=== PATIENT | female | born 1970 | race Caucasian/White ===

== ENCOUNTER → 2019-08-01 | Outpatient (CLI) | payer OTHER ==
[~2019-08-01] MED LIST: ALBUTEROL0.09 MG/A2 IH; AUGMENTIN 875875 MG PO; FLEXERIL5 MG PO; FLONASE ALLERG9.9 ML NAS; MEDROL DOSEPAK4 MG PO; NAPROSYN500 MG PO; PREDNISONE10 MG PO; ROBITUSSIN AC 110 ML PO; TESSALON PERLE100 M1 PO; TESSALON PERLE200 MG PO; VIBRAMYCIN100 MG PO; ZITHROMAX Z PA250 MG PO; ZITHROMAX250 MG PO; ZOFRAN4 MG PO
[2019-08-01 09:20] LABS: BASO % 0.4 % (0.0-1.0); EOS # 0.2 10*3/uL (0.0-0.4); LYMPH # 2.7 10*3/uL (1.3-4.4); LYMPH % 28.1 % (27.0-41.0); MEAN CELL VOLUME 84.7 fl (81.0-99.0); MEAN CORPUSCULAR HGB 26.9 pg (27.0-31.0); MEAN CORPUSCULAR HGB CONC 31.7 g/dl (33.0-37.0); MEAN PLATELET VOLUME 10.9 fl (9.6-12.3); MONO # 0.5 10*3/uL (0.1-1.0); MONO % 5.6 % (3.0-9.0); NEUT % 63.5 % (47.0-73.0); PLATELET COUNT AUTOMATED 270 10*3/uL (130-400); RED BLOOD COUNT 4.84 10*6/uL (4.10-5.10); RED CELL DISTRI WIDTH 14.6 % (0-14.5); WHITE BLOOD COUNT 9.5 10*3/uL (4.8-10.8)
[2019-08-01 09:47] LABS: ALBUMIN 3.6 gm/dl (3.1-4.5); ALKALINE PHOSPHATASE 128 U/L (45-117); BUN 10 mg/dl (7-24); CHLORIDE 100 mmol/L (98-107); CHOLESTEROL 244 mg/dL (<200); CREATININE 0.66 mg/dL (0.55-1.02); FREE T4 0.97 ng/dl (0.76-1.46); HDL CHOLESTEROL 38 mg/dl (40-60); POTASSIUM 3.6 mmol/L (3.5-5.1); SGOT/AST 67 IU/L (3-35); SGPT/ALT 69 U/L (12-78); SODIUM 134 mmol/L (136-145); TOTAL PROTEIN 8.5 gm/dL (6.4-8.2); TRIGLYCERIDES 489 mg/dl (<150)
[2019-08-02 10:07] LABS: CREATININE,URINE 232.6 mg/dL (Not Estab.); MICRO ALBUMIN/CRE RATIO 608.6 (0.0-30.0)
== END | disposition home or self-care (01) ==
LOC: LAB 08:41
PROVIDERS: Family Medicine
DX: R63.1 Polydipsia (principal); R07.89 Other chest pain; R23.2 Flushing; R35.8 Other polyuria

== ENCOUNTER → 2019-09-29 | Outpatient (CLI) | payer OTHER | END | disposition home or self-care (01) | LOC: CARD 08:19 | DX: R06.02 Shortness of breath (principal); R10.11 Right upper quadrant pain; I51.7 Cardiomegaly ==

== ENCOUNTER → 2019-10-08 | Outpatient (CLI) | payer OTHER | END | disposition home or self-care (01) | LOC: US 00:30 | DX: K76.0 Fatty (change of) liver, not elsewhere classified (principal); E11.9 Type 2 diabetes mellitus without complications; I10 Essential (primary) hypertension ==

== ENCOUNTER → 2019-10-13 | Outpatient (CLI) | payer OTHER | END | disposition home or self-care (01) | LOC: RAD 15:27 | DX: M19.042 Primary osteoarthritis, left hand (principal); M19.041 Primary osteoarthritis, right hand; M54.5 Low back pain ==

== ENCOUNTER → 2020-01-08 | Outpatient (CLI) | payer OTHER | END | disposition home or self-care (01) | LOC: MAMMO 00:04 | DX: Z12.31 Encounter for screening mammogram for malignant neoplasm of breast (principal) ==

== ENCOUNTER → 2020-06-02 | Outpatient (CLI) | payer OTHER | END | disposition home or self-care (01) | LOC: US 12:15 | DX: N88.8 Other specified noninflammatory disorders of cervix uteri (principal); D25.9 Leiomyoma of uterus, unspecified ==

== ENCOUNTER 2020-07-10 10:44 | Emergency (ER) | payer OTHER ==
[2020-07-10 11:01] VITALS: BP 144/63
[2020-07-10 12:06] LABS: BASO % 0.3 % (0.0-1.0); EOS # 0.2 10*3/uL (0.0-0.4); HEMATOCRIT 37.3 % (37.0-47.0); LYMPH # 2.3 10*3/uL (1.3-4.4); LYMPH % 23.5 % (27.0-41.0); MEAN CELL VOLUME 83.3 fl (81.0-99.0); MEAN CORPUSCULAR HGB 24.6 pg (27.0-31.0); MEAN CORPUSCULAR HGB CONC 29.5 g/dl (33.0-37.0); MEAN PLATELET VOLUME 10.2 fl (9.6-12.3); MONO # 0.5 10*3/uL (0.1-1.0); MONO % 5.2 % (3.0-9.0); NEUT # 6.6 10*3/uL (2.3-7.9); NEUT % 68.7 % (47.0-73.0); PLATELET COUNT AUTOMATED 308 10*3/uL (130-400); RED BLOOD COUNT 4.48 10*6/uL (4.10-5.10); RED CELL DISTRI WIDTH 15.9 % (0-14.5); WHITE BLOOD COUNT 9.6 10*3/uL (4.8-10.8)
[2020-07-10 12:22] LABS: ALBUMIN 3.5 gm/dl (3.1-4.5); ALKALINE PHOSPHATASE 125 U/L (45-117); BUN 8 mg/dl (7-24); CHLORIDE 102 mmol/L (98-107); CREATININE 0.63 mg/dL (0.55-1.02); POTASSIUM 3.8 mmol/L (3.5-5.1); SGOT/AST 27 IU/L (3-35); SGPT/ALT 34 U/L (12-78); SODIUM 137 mmol/L (136-145); TOTAL PROTEIN 8.2 gm/dL (6.4-8.2)
[2020-07-10] MEDS ORDERED: PREDNISONE20 M1 PO (13:33)
== END 2020-07-10 13:58 | disposition home or self-care (01) ==
LOC: ED 10:44
PROVIDERS: Physician Assistant
DX: M31.6 Other giant cell arteritis (principal); Z91.018 Allergy to other foods; Z79.899 Other long term (current) drug therapy

== ENCOUNTER → 2020-12-06 | Outpatient (CLI) | payer OTHER ==
[~2020-12-06] MED LIST changes: +PREDNISONE20 M1 PO
== END | disposition home or self-care (01) ==
LOC: COVID19 14:25
PROVIDERS: ATTEND Family Medicine
DX: Z20.822 Contact with and (suspected) exposure to COVID-19 (principal)

== ENCOUNTER → 2020-12-14 | Outpatient (CLI) | payer OTHER | END | disposition home or self-care (01) | LOC: RAD 10:10 | PROVIDERS: ATTEND Family Medicine | DX: R05 Cough (principal) ==

== ENCOUNTER → 2021-05-11 | Outpatient (CLI) | payer OTHER | END | disposition home or self-care (01) | LOC: RAD 16:34 | PROVIDERS: ATTEND Nurse Practitioner Primary Care | DX: M54.5 Low back pain (principal); G89.29 Other chronic pain ==

== ENCOUNTER 2021-09-13 17:45 | Emergency (ER) | payer OTHER ==
[~2021-09-13] VITALS: Ht 167.6 cm; Wt 90.7 kg
[2021-09-13 18:16] VITALS: BP 147/50
[2021-09-13 18:47] LABS: BASO # 0.1 10*3/uL (0.0-0.1); BASO % 0.5 % (0.0-1.0); EOS # 0.2 10*3/uL (0.0-0.4); EOS % 1.6 % (1.0-4.0); HEMATOCRIT 34.8 % (37.0-47.0); LYMPH # 2.2 10*3/uL (1.3-4.4); LYMPH % 21.3 % (27.0-41.0); MEAN CELL VOLUME 85.9 fl (81.0-99.0); MEAN CORPUSCULAR HGB 26.2 pg (27.0-31.0); MEAN CORPUSCULAR HGB CONC 30.5 g/dl (33.0-37.0); MEAN PLATELET VOLUME 10.2 fl (9.6-12.3); MONO # 0.5 10*3/uL (0.1-1.0); MONO % 5.3 % (3.0-9.0); NEUT # 7.3 10*3/uL (2.3-7.9); PLATELET COUNT AUTOMATED 276 10*3/uL (130-400); RED BLOOD COUNT 4.05 10*6/uL (4.10-5.10); RED CELL DISTRI WIDTH 15.6 % (0-14.5); WHITE BLOOD COUNT 10.3 10*3/uL (4.8-10.8)
[2021-09-13 19:02] LABS: ACT PARTIAL THROMBO TIME 24.7 SECONDS (20.0-32.1)
[2021-09-13 19:07] LABS: ALBUMIN 3.2 gm/dl (3.1-4.5); ALKALINE PHOSPHATASE 110 U/L (45-117); BUN 13 mg/dl (7-24); CHLORIDE 102 mmol/L (98-107); POTASSIUM 3.7 mmol/L (3.5-5.1); SGOT/AST 23 IU/L (3-35); SGPT/ALT 37 U/L (12-78); SODIUM 137 mmol/L (136-145); TOTAL PROTEIN 7.6 gm/dL (6.4-8.2)
[2021-09-13 19:09] LABS: TROPONIN I < 0.015 ng/ml (<0.045)
== END 2021-09-13 22:13 | disposition home or self-care (01) ==
LOC: ED 17:45
PROVIDERS: Emergency Medicine
DX: R06.00 Dyspnea, unspecified (principal); R53.83 Other fatigue

== ENCOUNTER 2022-11-08 16:33 | Emergency (ER) | payer OTHER | END 2022-11-08 17:59 | disposition left against medical advice (07) | LOC: ED 16:33 | DX: Z53.21 Procedure and treatment not carried out due to patient leaving prior to being seen by health care provider (principal) ==

== ENCOUNTER → 2024-01-08 | Outpatient (CLI) | payer OTHER ==
[2024-01-08 18:31] LABS: ALKALINE PHOSPHATASE 144 U/L (46-116); BUN 10 mg/dl (9-23); CHLORIDE 103 mmol/L (98-107); SGPT/ALT 12 U/L (5-49); TOTAL PROTEIN 6.3 gm/dL (6.0-8.0)
== END | disposition home or self-care (01) ==
LOC: RAD 14:33
PROVIDERS: Nurse Practitioner Family; ATTEND Nurse Practitioner Family
DX: R05.1 Acute cough (principal); R06.2 Wheezing; R60.9 Edema, unspecified; M54.50 Low back pain, unspecified; R06.09 Other forms of dyspnea; R09.89 Other specified symptoms and signs involving the circulatory and respiratory systems; Z86.79 Personal history of other diseases of the circulatory system; Z86.39 Personal history of other endocrine, nutritional and metabolic disease; Z87.09 Personal history of other diseases of the respiratory system

== ENCOUNTER 2024-02-08 17:28 | Emergency (ER) | payer OTHER ==
[~2024-02-08] VITALS: Ht 167.6 cm; Wt 123.4 kg
[2024-02-08 17:53] VITALS: BP 147/79
[2024-02-08 18:33] LABS: BASO % 0.5 % (0.0-1.0); EOS # 0.2 10*3/uL (0.0-0.4); EOS % 2.5 % (1.0-4.0); HEMATOCRIT 32.1 % (37.0-47.0); LYMPH # 1.9 10*3/uL (1.3-4.4); LYMPH % 23.1 % (27.0-41.0); MEAN CELL VOLUME 92.8 fl (81.0-99.0); MEAN CORPUSCULAR HGB 27.5 pg (27.0-31.0); MEAN CORPUSCULAR HGB CONC 29.6 g/dl (33.0-37.0); MEAN PLATELET VOLUME 9.9 fl (9.6-12.3); MONO # 0.5 10*3/uL (0.1-1.0); MONO % 6.4 % (3.0-9.0); NEUT # 5.6 10*3/uL (2.3-7.9); NEUT % 67.3 % (47.0-73.0); PLATELET COUNT AUTOMATED 267 10*3/uL (130-400); RED BLOOD COUNT 3.46 10*6/uL (4.10-5.10); RED CELL DISTRI WIDTH 15.9 % (0-14.5); WHITE BLOOD COUNT 8.4 10*3/uL (4.8-10.8)
[2024-02-08 18:45] LABS: ACT PARTIAL THROMBO TIME 30.5 SECONDS (20.0-32.1)
[2024-02-08 18:58] LABS: ALKALINE PHOSPHATASE 135 U/L (46-116); BUN 12 mg/dl (9-23); CHLORIDE 104 mmol/L (98-107); LIPASE 46 U/L (12-53); POTASSIUM 4.4 mmol/L (3.4-5.1); SGPT/ALT 9 U/L (5-49); TOTAL PROTEIN 5.7 gm/dL (6.0-8.0)
[2024-02-08] MEDS ORDERED: BUMETANIDE 1 MG/4 ML VIAL IV ONE (19:15)
== END 2024-02-08 20:12 | disposition home or self-care (01) ==
LOC: ED 17:28
PROVIDERS: Emergency Medicine
DX: I50.9 Heart failure, unspecified (principal); R79.82 Elevated C-reactive protein (CRP); D64.9 Anemia, unspecified; E43 Unspecified severe protein-calorie malnutrition; Z68.1 Body mass index [BMI] 19.9 or less, adult; J44.9 Chronic obstructive pulmonary disease, unspecified; Z91.013 Allergy to seafood; Z90.49 Acquired absence of other specified parts of digestive tract; Z98.890 Other specified postprocedural states

== ENCOUNTER → 2024-02-18 | Outpatient (CLI) | payer OTHER | END | disposition home or self-care (01) | LOC: CARD 01:19 | PROVIDERS: ATTEND Nurse Practitioner Primary Care | DX: I08.0 Rheumatic disorders of both mitral and aortic valves (principal); R01.1 Cardiac murmur, unspecified; R60.9 Edema, unspecified ==

== ENCOUNTER 2024-02-25 17:18 | Inpatient (IN) | payer OTHER ==
[~2024-02-25] VITALS: Ht 167.6 cm; Wt 128.2 kg
[2024-02-25 17:26] VITALS: BP 172/83
[2024-02-25 17:59] LABS: BASO % 0.3 % (0.0-1.0); EOS # 0.2 10*3/uL (0.0-0.4); EOS % 2.6 % (1.0-4.0); HEMATOCRIT 27.1 % (37.0-47.0); LYMPH # 1.6 10*3/uL (1.3-4.4); LYMPH % 20.2 % (27.0-41.0); MEAN CELL VOLUME 91.6 fl (81.0-99.0); MEAN CORPUSCULAR HGB 28.4 pg (27.0-31.0); MEAN PLATELET VOLUME 9.5 fl (9.6-12.3); MONO # 0.7 10*3/uL (0.1-1.0); MONO % 8.4 % (3.0-9.0); NEUT # 5.4 10*3/uL (2.3-7.9); NEUT % 68.2 % (47.0-73.0); PLATELET COUNT AUTOMATED 260 10*3/uL (130-400); RED BLOOD COUNT 2.96 10*6/uL (4.10-5.10); RED CELL DISTRI WIDTH 15.9 % (0-14.5); WHITE BLOOD COUNT 7.8 10*3/uL (4.8-10.8)
[2024-02-25] MEDS ORDERED: BUMETANIDE 1 MG/4 ML VIAL IV ONE ×2 (18:15→19:45)
[2024-02-25 18:18] LABS: POTASSIUM 3.5 mmol/L (3.4-5.1)
[2024-02-25] MEDS ORDERED: VICTOZA 3-0.6 MG/0.1 SQ (18:26)
[2024-02-25] MEDS ORDERED: CETIRIZINE HYDR10 MG PO (18:28)
[2024-02-25] MEDS ORDERED: BUMETANIDE2 MG PO (18:29)
[2024-02-25] MEDS ORDERED: FERROUS GLUCON324 M2 PO (18:31)
[2024-02-25] MEDS ORDERED: GLIPIZIDE5 M1 PO (18:31)
[2024-02-25] MEDS ORDERED: MULTIVITAMIN (18:32)
[2024-02-25] MEDS ORDERED: MULTIVITAMIN1 EACH PO (18:32)
[2024-02-25] MEDS ORDERED: LISINOPRIL2.5 MG PO (18:32)
[2024-02-25] MEDS ORDERED: PAROXETINE HCL30 MG PO (18:33)
[2024-02-25] MEDS ORDERED: ATORVASTATIN CA80 M1 PO (18:34)
[2024-02-25] MEDS ORDERED: Acetaminophen/Hydrocodone 5 MG/325 MG TABLET PO PRN (19:45)
[2024-02-25] MEDS ORDERED: ACETAMINOPHEN 325 MG TAB PO PRN (19:45)
[2024-02-25] MEDS ORDERED: BISACODYL 5 MG TAB PO PRN (19:45)
[2024-02-25 20:01] VITALS: BP 165/72
[2024-02-25 20:45] VITALS: BP 156/73
[2024-02-25 20:47] LABS: ALKALINE PHOSPHATASE 149 U/L (46-116); BUN 25 mg/dl (9-23); CHLORIDE 109 mmol/L (98-107); POTASSIUM 3.7 mmol/L (3.4-5.1); SGPT/ALT < 7 U/L (5-49); TOTAL PROTEIN 5.8 gm/dL (6.0-8.0)
[2024-02-25 23:51] LABS: BILIRUBIN Negative (Negative); BLOOD Trace-Lysed (Negative); CLARITY Clear (Clear); COLOR Yellow (Yellow); GLUCOSE 2+ (Negative); KETONE Negative (Negative); LEUKO ESTERASE Negative (Negative); NITRITE Negative (Negative); SPECIFIC GRAVITY 1.015 (1.001-1.030); UROBILINOGEN 0.2 E.U./dl (0.0-1.0)
[2024-02-26] VITALS: BP 132/85; BP 141/88
[2024-02-26 00:03] LABS: URINE CREATININE RANDOM 43.06 mg/dL
[2024-02-26 00:05] LABS: BACTERIA 1+; WBC 16-20 wbc/hpf (0-5)
[2024-02-26 06:05] LABS: BASO % 0.4 % (0.0-1.0); EOS # 0.3 10*3/uL (0.0-0.4); EOS % 2.8 % (1.0-4.0); HEMATOCRIT 28.3 % (37.0-47.0); LYMPH # 1.8 10*3/uL (1.3-4.4); LYMPH % 19.9 % (27.0-41.0); MEAN CELL VOLUME 91.6 fl (81.0-99.0); MEAN CORPUSCULAR HGB 27.8 pg (27.0-31.0); MEAN CORPUSCULAR HGB CONC 30.4 g/dl (33.0-37.0); MEAN PLATELET VOLUME 9.9 fl (9.6-12.3); MONO # 0.7 10*3/uL (0.1-1.0); MONO % 8.3 % (3.0-9.0); NEUT # 6.1 10*3/uL (2.3-7.9); NEUT % 68.4 % (47.0-73.0); PLATELET COUNT AUTOMATED 309 10*3/uL (130-400); RED BLOOD COUNT 3.09 10*6/uL (4.10-5.10)
[2024-02-26] MEDS ORDERED: DEXTROSE 10 % IN WATER 250 ML IV PRN (06:30)
[2024-02-26 06:34] LABS: ALKALINE PHOSPHATASE 147 U/L (46-116); BUN 23 mg/dl (9-23); CHLORIDE 111 mmol/L (98-107); CHOLESTEROL 229 mg/dL (<200); FREE T4 0.59 ng/dl (0.89-1.76); LDL CHOLESTEROL 104 mg/dL (9-159); POTASSIUM 3.7 mmol/L (3.4-5.1); TRIGLYCERIDES 313 mg/dl (<150)
[2024-02-26 06:35] LABS: ACT PARTIAL THROMBO TIME 31.5 SECONDS (20.0-32.1); SGPT/ALT < 7 U/L (5-49)
[2024-02-26] MEDS ORDERED: INSULIN LISPRO 1 UNIT/0.01 ML SQ SCH (07:30)
[2024-02-26 07:35] LABS: VITAMIN D, 25-HYDROXY 9.6 ng/mL (30-100)
[2024-02-26 08:00] VITALS: BP 154/64
[2024-02-26] MEDS ORDERED: Enoxaparin Sodium 30 MG/0.3 ML SYR SC SCH (10:00)
[2024-02-26] MEDS ORDERED: Paroxetine Hydrochloride 10 MG TAB PO SCH (10:00)
[2024-02-26] MEDS ORDERED: Cholecalciferol 2,000 UNIT TABLET (50 MCG) PO SCH (10:25)
[2024-02-26 12:00] VITALS: BP 162/60
[2024-02-26] MEDS ORDERED: LISINOPRIL 10 MG TAB PO SCH (13:50)
[2024-02-26] MEDS ORDERED: BUMETANIDE 1 MG/4 ML VIAL IV ONE (13:50)
[2024-02-26 16:00] VITALS: BP 149/69
[2024-02-26 19:00] VITALS: BP 157/69
[2024-02-26] MEDS ORDERED: INFUSION IV SCH (21:00)
[2024-02-26] MEDS ORDERED: BUMETANIDE IV SCH (21:00)
[2024-02-26] MEDS ORDERED: ATORVASTATIN CALCIUM 80 MG TAB PO SCH (22:00)
[2024-02-27] VITALS (10 sets, daily range): BP systolic 136–156; BP diastolic 58–88
[2024-02-27 04:12] LABS: BASO % 0.5 % (0.0-1.0); EOS # 0.2 10*3/uL (0.0-0.4); EOS % 2.8 % (1.0-4.0); LYMPH # 1.9 10*3/uL (1.3-4.4); LYMPH % 22.9 % (27.0-41.0); MEAN CELL VOLUME 92.4 fl (81.0-99.0); MEAN CORPUSCULAR HGB 27.7 pg (27.0-31.0); MEAN PLATELET VOLUME 9.5 fl (9.6-12.3); MONO # 0.7 10*3/uL (0.1-1.0); MONO % 8.7 % (3.0-9.0); NEUT # 5.3 10*3/uL (2.3-7.9); NEUT % 64.9 % (47.0-73.0); PLATELET COUNT AUTOMATED 285 10*3/uL (130-400); RED BLOOD COUNT 3.03 10*6/uL (4.10-5.10); RED CELL DISTRI WIDTH 16.1 % (0-14.5); WHITE BLOOD COUNT 8.1 10*3/uL (4.8-10.8)
[2024-02-27 04:34] LABS: ALKALINE PHOSPHATASE 142 U/L (46-116); BUN 23 mg/dl (9-23); CHLORIDE 111 mmol/L (98-107); POTASSIUM 3.7 mmol/L (3.4-5.1)
[2024-02-27 04:35] LABS: SGPT/ALT < 7 U/L (5-49)
[2024-02-27 04:42] LABS: ACT PARTIAL THROMBO TIME 33.6 SECONDS (20.0-32.1)
[2024-02-27] MEDS ORDERED: Lidocaine Hydrochloride 5 ML AMP ONE (08:12)
[2024-02-27 09:56] LABS: BASO % 0.3 % (0.0-1.0); EOS # 0.2 10*3/uL (0.0-0.4); EOS % 2.9 % (1.0-4.0); HEMATOCRIT 30.8 % (37.0-47.0); LYMPH # 1.4 10*3/uL (1.3-4.4); LYMPH % 19.1 % (27.0-41.0); MEAN CELL VOLUME 92.5 fl (81.0-99.0); MEAN CORPUSCULAR HGB 27.3 pg (27.0-31.0); MEAN CORPUSCULAR HGB CONC 29.5 g/dl (33.0-37.0); MEAN PLATELET VOLUME 9.8 fl (9.6-12.3); MONO # 0.6 10*3/uL (0.1-1.0); MONO % 7.7 % (3.0-9.0); NEUT % 69.6 % (47.0-73.0); PLATELET COUNT AUTOMATED 307 10*3/uL (130-400); RED BLOOD COUNT 3.33 10*6/uL (4.10-5.10); RED CELL DISTRI WIDTH 15.9 % (0-14.5); WHITE BLOOD COUNT 7.2 10*3/uL (4.8-10.8)
[2024-02-27 12:19] LABS: BASO % 0.4 % (0.0-1.0); EOS # 0.2 10*3/uL (0.0-0.4); EOS % 2.4 % (1.0-4.0); LYMPH # 1.4 10*3/uL (1.3-4.4); LYMPH % 18.8 % (27.0-41.0); MEAN CELL VOLUME 93.2 fl (81.0-99.0); MEAN CORPUSCULAR HGB 27.7 pg (27.0-31.0); MEAN CORPUSCULAR HGB CONC 29.7 g/dl (33.0-37.0); MEAN PLATELET VOLUME 9.7 fl (9.6-12.3); MONO # 0.4 10*3/uL (0.1-1.0); MONO % 5.6 % (3.0-9.0); NEUT # 5.4 10*3/uL (2.3-7.9); NEUT % 72.5 % (47.0-73.0); PLATELET COUNT AUTOMATED 293 10*3/uL (130-400); RED BLOOD COUNT 3.11 10*6/uL (4.10-5.10); RED CELL DISTRI WIDTH 15.9 % (0-14.5); WHITE BLOOD COUNT 7.5 10*3/uL (4.8-10.8)
[2024-02-28] VITALS: BP 154/70
[2024-02-28 05:06] LABS: HBSAG Negative (Negative); HEP B CORE AB, IGM Negative (Negative); HEPATITIS C ANTIBODY Non Reactive (Non Reactive)
[2024-02-28 06:38] LABS: BASO % 0.4 % (0.0-1.0); EOS # 0.2 10*3/uL (0.0-0.4); EOS % 2.8 % (1.0-4.0); HEMATOCRIT 28.4 % (37.0-47.0); LYMPH # 1.7 10*3/uL (1.3-4.4); LYMPH % 21.3 % (27.0-41.0); MEAN CELL VOLUME 93.4 fl (81.0-99.0); MEAN CORPUSCULAR HGB 26.6 pg (27.0-31.0); MEAN CORPUSCULAR HGB CONC 28.5 g/dl (33.0-37.0); MEAN PLATELET VOLUME 10.3 fl (9.6-12.3); MONO # 0.7 10*3/uL (0.1-1.0); MONO % 8.6 % (3.0-9.0); NEUT # 5.2 10*3/uL (2.3-7.9); NEUT % 66.6 % (47.0-73.0); PLATELET COUNT AUTOMATED 295 10*3/uL (130-400); RED BLOOD COUNT 3.04 10*6/uL (4.10-5.10); RED CELL DISTRI WIDTH 16.1 % (0-14.5); WHITE BLOOD COUNT 7.8 10*3/uL (4.8-10.8)
[2024-02-28 06:43] LABS: POTASSIUM 3.9 mmol/L (3.4-5.1)
[2024-02-28 08:00] VITALS: BP 159/76
[2024-02-28] MEDS ORDERED: Cetirizine Hydrochloride 10 MG TAB PO SCH (10:45)
[2024-02-28 12:00] VITALS: BP 103/85; BP 153/63
[2024-02-28 14:08] LABS: FREE KAPPA LIGHT CHAINS 91.4 mg/L (3.3-19.4); FREE LAMBDA LIGHT CHAINS 42.4 mg/L (5.7-26.3); KAPPA/LAMBDA RATIO 2.16 (0.26-1.65)
[2024-02-28 15:07] LABS: ALPHA-1-GLOBULIN, URINE 11.4 % (.); ALPHA-2-GLOBULIN, URINE 12.6 % (.); GAMMA GLOBULIN, URINE 9.7 % (.); M-SPIKE % Not Observed % (Not Observed); PROTEIN,TOTAL - URINE RANDOM 1439.2 mg/dL (Not Estab.)
[2024-02-28 16:00] VITALS: BP 135/48
[2024-02-28 20:00] VITALS: BP 148/58
[2024-02-29] VITALS: BP 157/81
[2024-02-29 05:43] LABS: POTASSIUM 3.8 mmol/L (3.4-5.1)
[2024-02-29 06:03] LABS: BASO % 0.4 % (0.0-1.0); EOS # 0.2 10*3/uL (0.0-0.4); HEMATOCRIT 27.8 % (37.0-47.0); LYMPH # 1.6 10*3/uL (1.3-4.4); LYMPH % 20.2 % (27.0-41.0); MEAN CELL VOLUME 92.1 fl (81.0-99.0); MEAN CORPUSCULAR HGB 27.8 pg (27.0-31.0); MEAN CORPUSCULAR HGB CONC 30.2 g/dl (33.0-37.0); MEAN PLATELET VOLUME 10.3 fl (9.6-12.3); MONO # 0.7 10*3/uL (0.1-1.0); MONO % 8.9 % (3.0-9.0); NEUT # 5.2 10*3/uL (2.3-7.9); NEUT % 67.2 % (47.0-73.0); PLATELET COUNT AUTOMATED 301 10*3/uL (130-400); RED BLOOD COUNT 3.02 10*6/uL (4.10-5.10); WHITE BLOOD COUNT 7.8 10*3/uL (4.8-10.8)
[2024-02-29 08:00] VITALS: BP 157/64
[2024-02-29 12:00] VITALS: BP 167/80
[2024-02-29 16:00] VITALS: BP 157/73
[2024-02-29 20:00] VITALS: BP 151/64
[2024-03-01] VITALS: BP 123/45
[2024-03-01 07:11] LABS: BASO % 0.4 % (0.0-1.0); EOS # 0.2 10*3/uL (0.0-0.4); EOS % 3.1 % (1.0-4.0); LYMPH # 1.7 10*3/uL (1.3-4.4); MEAN CELL VOLUME 92.7 fl (81.0-99.0); MEAN CORPUSCULAR HGB 27.2 pg (27.0-31.0); MEAN CORPUSCULAR HGB CONC 29.3 g/dl (33.0-37.0); MEAN PLATELET VOLUME 9.9 fl (9.6-12.3); MONO # 0.7 10*3/uL (0.1-1.0); MONO % 9.4 % (3.0-9.0); NEUT # 4.5 10*3/uL (2.3-7.9); NEUT % 62.8 % (47.0-73.0); PLATELET COUNT AUTOMATED 282 10*3/uL (130-400); RED BLOOD COUNT 3.02 10*6/uL (4.10-5.10); RED CELL DISTRI WIDTH 15.9 % (0-14.5); WHITE BLOOD COUNT 7.2 10*3/uL (4.8-10.8)
[2024-03-01 07:42] LABS: POTASSIUM 3.5 mmol/L (3.4-5.1)
[2024-03-01 08:00] VITALS: BP 151/55
[2024-03-01 12:00] VITALS: BP 150/52
[2024-03-01 16:00] VITALS: BP 151/69
[2024-03-01 20:00] VITALS: BP 109/62
[2024-03-02] VITALS: BP 141/68
[2024-03-02 07:01] LABS: POTASSIUM 3.7 mmol/L (3.4-5.1)
[2024-03-02 08:00] VITALS: BP 169/60
[2024-03-02 12:00] VITALS: BP 159/62
[2024-03-02 16:00] VITALS: BP 149/55
[2024-03-02] MEDS ORDERED: BUMETANIDE 1 MG/4 ML VIAL IV SCH (18:00)
[2024-03-02 20:00] VITALS: BP 156/68
[2024-03-03] VITALS: BP 144/62
[2024-03-03] MEDS ORDERED: ARMOUR THYROID15 M1 PO (00:02)
[2024-03-03 06:21] LABS: POTASSIUM 3.9 mmol/L (3.4-5.1)
[2024-03-03 08:00] VITALS: BP 156/75
[2024-03-03] MEDS ORDERED: HEPARIN SODIUM 5,000 UNIT/ML VIAL SC SCH (10:40)
[2024-03-03] MEDS ORDERED: FERROUS GLUCONATE 324 MG TAB PO SCH (10:40)
[2024-03-03 12:00] VITALS: BP 138/65
[2024-03-03 13:06] LABS: A/G RATIO 0.6 (0.7-1.7); ALBUMIN 1.6 g/dL (2.9-4.4); ALPHA-1-GLOBULIN 0.3 g/dL (0.0-0.4); ALPHA-2-GLOBULIN 1.2 g/dL (0.4-1.0); GAMMA GLOBULIN 0.5 g/dL (0.4-1.8); GLOBULIN, TOTAL 2.9 g/dL (2.2-3.9); TOTAL PROTEIN, SERUM 4.5 g/dL (6.0-8.5)
[2024-03-03 16:00] VITALS: BP 147/61
[2024-03-03 20:00] VITALS: BP 150/78
[2024-03-04] VITALS: BP 139/56
[2024-03-04 06:29] LABS: BASO % 0.4 % (0.0-1.0); EOS # 0.3 10*3/uL (0.0-0.4); EOS % 3.4 % (1.0-4.0); HEMATOCRIT 28.3 % (37.0-47.0); LYMPH # 1.8 10*3/uL (1.3-4.4); LYMPH % 23.4 % (27.0-41.0); MEAN CELL VOLUME 92.8 fl (81.0-99.0); MEAN CORPUSCULAR HGB 27.5 pg (27.0-31.0); MEAN CORPUSCULAR HGB CONC 29.7 g/dl (33.0-37.0); MEAN PLATELET VOLUME 9.9 fl (9.6-12.3); MONO # 0.6 10*3/uL (0.1-1.0); MONO % 7.5 % (3.0-9.0); PLATELET COUNT AUTOMATED 263 10*3/uL (130-400); RED BLOOD COUNT 3.05 10*6/uL (4.10-5.10); RED CELL DISTRI WIDTH 15.9 % (0-14.5); WHITE BLOOD COUNT 7.7 10*3/uL (4.8-10.8)
[2024-03-04 07:04] LABS: POTASSIUM 3.8 mmol/L (3.4-5.1)
[2024-03-04 08:00] VITALS: BP 156/63
[2024-03-04 12:00] VITALS: BP 150/60
[2024-03-04 15:05] VITALS: BP 143/59
[2024-03-04 20:00] VITALS: BP 148/68
[2024-03-05] VITALS: BP 149/58
[2024-03-05 06:23] LABS: POTASSIUM 4.4 mmol/L (3.4-5.1)
[2024-03-05 08:00] VITALS: BP 151/68
[2024-03-05 12:00] VITALS: BP 165/64
[2024-03-05] MEDS ORDERED: predniSONE 20 MG TAB PO SCH (12:50)
[2024-03-05] MEDS ORDERED: Pantoprazole Sodium 40 MG TAB PO SCH (12:55)
[2024-03-05] MEDS ORDERED: SEPTDS PO (13:19)
[2024-03-05] MEDS ORDERED: XARELTO10 MG PO (13:19)
[2024-03-05] MEDS ORDERED: VITAMIN D350 MCG PO (13:19)
[2024-03-05] MEDS ORDERED: PEPCID20 MG PO (13:19)
[2024-03-05] MEDS ORDERED: PREDNISONE20 M1 PO (13:19)
[2024-03-05] MEDS ORDERED: BUMETANIDE1 MG PO (13:19)
[2024-03-06] MEDS ORDERED: BUMETANIDE 1 MG TAB PO SCH (10:00)
[2024-03-07] MEDS ORDERED: Sulfamethoxazole/Trimethopri 1 TAB TAB PO SCH (10:00)
== END 2024-03-05 16:03 | disposition home or self-care (01) | DRG 469 ==
LOC: ED 17:18 → 5E 18:31 → EDHOLD 18:31 → 5E 20:18
PROVIDERS: Family Medicine; Internal Medicine; Internal Medicine Nephrology; Nurse Practitioner Family; Student in an Organized Health Care Education/Training Program; Surgery; ADMIT Internal Medicine; ATTEND Internal Medicine
PROC: 0TB03ZX Excision of Right Kidney, Percutaneous Approach, Diagnostic (ICD-10-PCS; principal; 2024-02-27)
DX: N17.0 Acute kidney failure with tubular necrosis (principal); E88.09 Other disorders of plasma-protein metabolism, not elsewhere classified; I11.0 Hypertensive heart disease with heart failure; D64.9 Anemia, unspecified; N04.9 Nephrotic syndrome with unspecified morphologic changes; N39.0 Urinary tract infection, site not specified; R26.2 Difficulty in walking, not elsewhere classified; E78.2 Mixed hyperlipidemia; N39.46 Mixed incontinence; I50.9 Heart failure, unspecified; R01.1 Cardiac murmur, unspecified; E11.65 Type 2 diabetes mellitus with hyperglycemia; R19.00 Intra-abdominal and pelvic swelling, mass and lump, unspecified site; N05.0 Unspecified nephritic syndrome with minor glomerular abnormality; J98.11 Atelectasis; Z79.899 Other long term (current) drug therapy; Z88.8 Allergy status to other drugs, medicaments and biological substances; Z90.49 Acquired absence of other specified parts of digestive tract; Z98.51 Tubal ligation status; Z87.891 Personal history of nicotine dependence; Z82.49 Family history of ischemic heart disease and other diseases of the circulatory system; Z83.3 Family history of diabetes mellitus

== ENCOUNTER → 2024-03-10 | Outpatient (CLI) | payer OTHER ==
[~2024-03-10] MED LIST changes: +ARMOUR THYROID15 M1 PO; +ATORVASTATIN CA80 M1 PO; +BUMETANIDE1 MG PO; +BUMETANIDE2 MG PO; +CETIRIZINE HYDR10 MG PO; +FERROUS GLUCON324 M2 PO; +GLIPIZIDE5 M1 PO; +LISINOPRIL2.5 MG PO; +MULTIVITAMIN; +MULTIVITAMIN1 EACH PO; +PAROXETINE HCL30 MG PO; +PEPCID20 MG PO; +SEPTDS PO; +VICTOZA 3-0.6 MG/0.1 SQ; +VITAMIN D350 MCG PO; +XARELTO10 MG PO
[2024-03-10 12:27] LABS: BASO % 0.3 % (0.0-1.0); EOS # 0.2 10*3/uL (0.0-0.4); EOS % 1.5 % (1.0-4.0); LYMPH # 3.5 10*3/uL (1.3-4.4); LYMPH % 28.8 % (27.0-41.0); MEAN CELL VOLUME 90.9 fl (81.0-99.0); MEAN CORPUSCULAR HGB 26.7 pg (27.0-31.0); MEAN CORPUSCULAR HGB CONC 29.4 g/dl (33.0-37.0); MEAN PLATELET VOLUME 10.6 fl (9.6-12.3); MONO % 8.3 % (3.0-9.0); NEUT # 7.5 10*3/uL (2.3-7.9); NEUT % 60.7 % (47.0-73.0); PLATELET COUNT AUTOMATED 382 10*3/uL (130-400); RED BLOOD COUNT 3.52 10*6/uL (4.10-5.10); RED CELL DISTRI WIDTH 15.8 % (0-14.5); WHITE BLOOD COUNT 12.3 10*3/uL (4.8-10.8)
[2024-03-10 12:56] LABS: ALKALINE PHOSPHATASE 126 U/L (46-116); BUN 30 mg/dl (9-23); CHLORIDE 110 mmol/L (98-107); POTASSIUM 3.6 mmol/L (3.4-5.1); SGPT/ALT 10 U/L (5-49); TOTAL PROTEIN 5.9 gm/dL (6.0-8.0)
[2024-03-10 14:27] LABS: URINE CREATININE RANDOM 62.4 mg/dL
== END | disposition home or self-care (01) ==
LOC: LAB 11:31
PROVIDERS: ATTEND Internal Medicine Nephrology
DX: N17.8 Other acute kidney failure (principal)

== ENCOUNTER → 2024-03-19 | Outpatient (CLI) | payer OTHER ==
[2024-03-19 10:25] LABS: BASO % 0.1 % (0.0-1.0); EOS # 0.2 10*3/uL (0.0-0.4); EOS % 1.7 % (1.0-4.0); HEMATOCRIT 36.6 % (37.0-47.0); LYMPH # 4.4 10*3/uL (1.3-4.4); MEAN CELL VOLUME 89.7 fl (81.0-99.0); MEAN CORPUSCULAR HGB 27.7 pg (27.0-31.0); MEAN CORPUSCULAR HGB CONC 30.9 g/dl (33.0-37.0); MEAN PLATELET VOLUME 10.5 fl (9.6-12.3); NEUT % 58.6 % (47.0-73.0); PLATELET COUNT AUTOMATED 286 10*3/uL (130-400); RED BLOOD COUNT 4.08 10*6/uL (4.10-5.10); RED CELL DISTRI WIDTH 16.2 % (0-14.5); WHITE BLOOD COUNT 13.7 10*3/uL (4.8-10.8)
[2024-03-19 10:34] LABS: URINE CREATININE RANDOM 68.4 mg/dL
[2024-03-19 10:39] LABS: BILIRUBIN Negative (Negative); BLOOD Trace-Lysed (Negative); CLARITY Clear (Clear); COLOR Yellow (Yellow); GLUCOSE Trace (Negative); KETONE Negative (Negative); LEUKO ESTERASE Negative (Negative); NITRITE Negative (Negative); PH 6.5 (4.5-8.0); UROBILINOGEN 0.2 E.U./dl (0.0-1.0)
[2024-03-19 10:57] LABS: POTASSIUM 3.2 mmol/L (3.4-5.1); TOTAL PROTEIN 6.3 gm/dL (6.0-8.0)
[2024-03-19 10:59] LABS: RBC 0-2 rbc/hpf (0-2)
[2024-03-19 11:00] LABS: BACTERIA 1+
== END | disposition home or self-care (01) ==
LOC: LAB 10:01
PROVIDERS: ATTEND Nurse Practitioner Family
DX: D64.9 Anemia, unspecified (principal); R80.9 Proteinuria, unspecified; N17.8 Other acute kidney failure

== ENCOUNTER → 2024-03-25 | Outpatient (CLI) | payer OTHER ==
[2024-03-25 10:38] LABS: BASO % 0.2 % (0.0-1.0); EOS # 0.1 10*3/uL (0.0-0.4); EOS % 0.6 % (1.0-4.0); HEMATOCRIT 39.1 % (37.0-47.0); LYMPH # 3.7 10*3/uL (1.3-4.4); LYMPH % 24.2 % (27.0-41.0); MEAN CELL VOLUME 89.7 fl (81.0-99.0); MEAN CORPUSCULAR HGB 27.3 pg (27.0-31.0); MEAN CORPUSCULAR HGB CONC 30.4 g/dl (33.0-37.0); MEAN PLATELET VOLUME 10.6 fl (9.6-12.3); MONO # 0.9 10*3/uL (0.1-1.0); MONO % 6.1 % (3.0-9.0); NEUT # 10.4 10*3/uL (2.3-7.9); PLATELET COUNT AUTOMATED 255 10*3/uL (130-400); RED BLOOD COUNT 4.36 10*6/uL (4.10-5.10); RED CELL DISTRI WIDTH 15.7 % (0-14.5); WHITE BLOOD COUNT 15.2 10*3/uL (4.8-10.8)
[2024-03-25 11:09] LABS: URINE CREATININE RANDOM 76.12 mg/dL
[2024-03-25 11:19] LABS: POTASSIUM 3.8 mmol/L (3.4-5.1); TOTAL PROTEIN 6.6 gm/dL (6.0-8.0)
== END | disposition home or self-care (01) ==
LOC: LAB 10:01
PROVIDERS: ATTEND Internal Medicine Nephrology
DX: N17.8 Other acute kidney failure (principal)

== ENCOUNTER → 2024-04-01 | Outpatient (CLI) | payer OTHER ==
[2024-04-01 10:21] LABS: HEMATOCRIT 38.5 % (37.0-47.0); MEAN CORPUSCULAR HGB 27.8 pg (27.0-31.0); MEAN CORPUSCULAR HGB CONC 30.9 g/dl (33.0-37.0); MEAN PLATELET VOLUME 10.1 fl (9.6-12.3); PLATELET COUNT AUTOMATED 237 10*3/uL (130-400); RED BLOOD COUNT 4.28 10*6/uL (4.10-5.10); RED CELL DISTRI WIDTH 15.5 % (0-14.5); WHITE BLOOD COUNT 15.7 10*3/uL (4.8-10.8)
[2024-04-01 10:29] LABS: URINE CREATININE RANDOM 44.7 mg/dL
[2024-04-01 10:32] LABS: MANUAL DIFF REFLEX YES
[2024-04-01 10:49] LABS: PLATELET SUFFICIENCY NORMAL (NORMAL); TOTAL CELLS COUNTED 100 #CELLS
[2024-04-01 11:01] LABS: POTASSIUM 3.6 mmol/L (3.4-5.1)
== END | disposition home or self-care (01) ==
LOC: LAB 10:00
PROVIDERS: ATTEND Internal Medicine Nephrology
DX: N17.8 Other acute kidney failure (principal)

== ENCOUNTER → 2024-04-08 | Outpatient (CLI) | payer OTHER ==
[2024-04-08 11:32] LABS: BASO % 0.3 % (0.0-1.0); EOS # 0.1 10*3/uL (0.0-0.4); EOS % 1.5 % (1.0-4.0); HEMATOCRIT 34.5 % (37.0-47.0); LYMPH # 1.8 10*3/uL (1.3-4.4); LYMPH % 20.1 % (27.0-41.0); MEAN CELL VOLUME 91.5 fl (81.0-99.0); MEAN CORPUSCULAR HGB 28.4 pg (27.0-31.0); MONO # 0.6 10*3/uL (0.1-1.0); MONO % 6.7 % (3.0-9.0); NEUT # 6.3 10*3/uL (2.3-7.9); NEUT % 70.6 % (47.0-73.0); PLATELET COUNT AUTOMATED 203 10*3/uL (130-400); RED BLOOD COUNT 3.77 10*6/uL (4.10-5.10); RED CELL DISTRI WIDTH 15.9 % (0-14.5); WHITE BLOOD COUNT 8.9 10*3/uL (4.8-10.8)
[2024-04-08 11:34] LABS: URINE CREATININE RANDOM 92.08 mg/dL
[2024-04-08 11:52] LABS: ALKALINE PHOSPHATASE 93 U/L (46-116); BUN 18 mg/dl (9-23); CHLORIDE 101 mmol/L (98-107); SGPT/ALT 37 U/L (5-49)
== END | disposition home or self-care (01) ==
LOC: LAB 11:10
PROVIDERS: ATTEND Internal Medicine Nephrology
DX: N17.8 Other acute kidney failure (principal)

== ENCOUNTER → 2024-04-15 | Outpatient (CLI) | payer OTHER ==
[2024-04-15 11:07] LABS: URINE CREATININE RANDOM 138.04 mg/dL
[2024-04-15 11:08] LABS: BASO % 0.2 % (0.0-1.0); EOS # 0.1 10*3/uL (0.0-0.4); EOS % 1.2 % (1.0-4.0); HEMATOCRIT 31.7 % (37.0-47.0); LYMPH # 2.6 10*3/uL (1.3-4.4); LYMPH % 28.9 % (27.0-41.0); MEAN CORPUSCULAR HGB 28.7 pg (27.0-31.0); MEAN CORPUSCULAR HGB CONC 32.2 g/dl (33.0-37.0); MEAN PLATELET VOLUME 9.7 fl (9.6-12.3); MONO # 0.5 10*3/uL (0.1-1.0); MONO % 5.4 % (3.0-9.0); NEUT # 5.8 10*3/uL (2.3-7.9); NEUT % 63.4 % (47.0-73.0); PLATELET COUNT AUTOMATED 222 10*3/uL (130-400); RED BLOOD COUNT 3.56 10*6/uL (4.10-5.10); WHITE BLOOD COUNT 9.1 10*3/uL (4.8-10.8)
[2024-04-15 11:41] LABS: POTASSIUM 3.9 mmol/L (3.4-5.1)
== END | disposition home or self-care (01) ==
LOC: LAB 10:30
PROVIDERS: ATTEND Internal Medicine Nephrology
DX: N17.8 Other acute kidney failure (principal); E03.9 Hypothyroidism, unspecified; E55.9 Vitamin D deficiency, unspecified

== ENCOUNTER → 2024-04-29 | Outpatient (CLI) | payer OTHER ==
[2024-04-29 11:31] LABS: BASO # 0.1 10*3/uL (0.0-0.1); BASO % 0.4 % (0.0-1.0); EOS # 0.2 10*3/uL (0.0-0.4); HEMATOCRIT 32.4 % (37.0-47.0); LYMPH # 4.4 10*3/uL (1.3-4.4); LYMPH % 29.3 % (27.0-41.0); MEAN CELL VOLUME 93.1 fl (81.0-99.0); MEAN CORPUSCULAR HGB 29.3 pg (27.0-31.0); MEAN CORPUSCULAR HGB CONC 31.5 g/dl (33.0-37.0); MEAN PLATELET VOLUME 10.3 fl (9.6-12.3); MONO # 0.7 10*3/uL (0.1-1.0); NEUT # 9.3 10*3/uL (2.3-7.9); NEUT % 62.4 % (47.0-73.0); NUCLEATED RED BLOOD CELL 0.2 % (0.0-0.0); PLATELET COUNT AUTOMATED 355 10*3/uL (130-400); RED BLOOD COUNT 3.48 10*6/uL (4.10-5.10); RED CELL DISTRI WIDTH 17.6 % (0-14.5); WHITE BLOOD COUNT 14.9 10*3/uL (4.8-10.8)
[2024-04-29 11:33] LABS: BILIRUBIN Negative (Negative); BLOOD Negative (Negative); CLARITY Cloudy (Clear); COLOR Yellow (Yellow); GLUCOSE Negative (Negative); KETONE Trace (Negative); LEUKO ESTERASE Negative (Negative); NITRITE Negative (Negative); PH 5.5 (4.5-8.0); SPECIFIC GRAVITY >= 1.030 (1.001-1.030)
[2024-04-29 11:41] LABS: URINE CREATININE RANDOM 220.02 mg/dL
[2024-04-29 12:08] LABS: ALKALINE PHOSPHATASE 100 U/L (46-116); BUN 26 mg/dl (9-23); CHLORIDE 101 mmol/L (98-107); SGPT/ALT 25 U/L (5-49); TOTAL PROTEIN 7.1 gm/dL (6.0-8.0)
== END | disposition home or self-care (01) ==
LOC: LAB 10:54
PROVIDERS: ATTEND Nurse Practitioner Family
DX: N17.8 Other acute kidney failure (principal); R80.9 Proteinuria, unspecified

== ENCOUNTER → 2024-05-07 | Outpatient (CLI) | payer OTHER ==
[2024-05-07 11:54] LABS: BASO # 0.1 10*3/uL (0.0-0.1); BASO % 0.3 % (0.0-1.0); EOS # 0.2 10*3/uL (0.0-0.4); EOS % 1.1 % (1.0-4.0); HEMATOCRIT 33.6 % (37.0-47.0); LYMPH # 4.1 10*3/uL (1.3-4.4); LYMPH % 27.4 % (27.0-41.0); MEAN CELL VOLUME 95.5 fl (81.0-99.0); MEAN CORPUSCULAR HGB 29.5 pg (27.0-31.0); MEAN PLATELET VOLUME 10.6 fl (9.6-12.3); MONO # 0.8 10*3/uL (0.1-1.0); MONO % 5.4 % (3.0-9.0); NEUT # 9.7 10*3/uL (2.3-7.9); NEUT % 64.8 % (47.0-73.0); PLATELET COUNT AUTOMATED 258 10*3/uL (130-400); RED BLOOD COUNT 3.52 10*6/uL (4.10-5.10); RED CELL DISTRI WIDTH 18.2 % (0-14.5); WHITE BLOOD COUNT 14.9 10*3/uL (4.8-10.8)
[2024-05-07 12:05] LABS: BILIRUBIN Negative (Negative); BLOOD Negative (Negative); CLARITY Clear (Clear); COLOR Yellow (Yellow); GLUCOSE Negative (Negative); KETONE Negative (Negative); LEUKO ESTERASE Negative (Negative); NITRITE Negative (Negative); UROBILINOGEN 0.2 E.U./dl (0.0-1.0)
[2024-05-07 12:17] LABS: URINE CREATININE RANDOM 40.89 mg/dL
[2024-05-07 12:21] LABS: ALKALINE PHOSPHATASE 88 U/L (46-116); BUN 22 mg/dl (9-23); CHLORIDE 100 mmol/L (98-107); POTASSIUM 3.9 mmol/L (3.4-5.1); SGPT/ALT 23 U/L (5-49); TOTAL PROTEIN 7.4 gm/dL (6.0-8.0)
== END | disposition home or self-care (01) ==
LOC: LAB 11:19
PROVIDERS: ATTEND Nurse Practitioner Family
DX: N17.8 Other acute kidney failure (principal); R80.9 Proteinuria, unspecified

== ENCOUNTER → 2024-05-12 | Outpatient (CLI) | payer OTHER ==
[2024-05-12 09:38] LABS: BASO # 0.1 10*3/uL (0.0-0.1); BASO % 0.3 % (0.0-1.0); EOS # 0.2 10*3/uL (0.0-0.4); EOS % 1.3 % (1.0-4.0); HEMATOCRIT 33.4 % (37.0-47.0); LYMPH # 4.5 10*3/uL (1.3-4.4); MEAN CELL VOLUME 95.7 fl (81.0-99.0); MEAN CORPUSCULAR HGB 29.8 pg (27.0-31.0); MEAN CORPUSCULAR HGB CONC 31.1 g/dl (33.0-37.0); MEAN PLATELET VOLUME 10.3 fl (9.6-12.3); MONO # 0.8 10*3/uL (0.1-1.0); MONO % 5.6 % (3.0-9.0); NEUT # 8.7 10*3/uL (2.3-7.9); PLATELET COUNT AUTOMATED 238 10*3/uL (130-400); RED BLOOD COUNT 3.49 10*6/uL (4.10-5.10); RED CELL DISTRI WIDTH 17.9 % (0-14.5); WHITE BLOOD COUNT 14.3 10*3/uL (4.8-10.8)
[2024-05-12 09:40] LABS: BILIRUBIN Negative (Negative); BLOOD Negative (Negative); CLARITY Clear (Clear); COLOR Yellow (Yellow); GLUCOSE Negative (Negative); KETONE Negative (Negative); LEUKO ESTERASE Negative (Negative); NITRITE Negative (Negative)
[2024-05-12 09:48] LABS: URINE CREATININE RANDOM 90.98 mg/dL
[2024-05-12 09:57] LABS: MUCOUS 1+; WBC 0-2 wbc/hpf (0-5)
[2024-05-12 10:00] LABS: BACTERIA 2+
[2024-05-12 10:17] LABS: POTASSIUM 4.1 mmol/L (3.4-5.1); TOTAL PROTEIN 7.4 gm/dL (6.0-8.0)
== END | disposition home or self-care (01) ==
LOC: LAB 09:13
PROVIDERS: ATTEND Nurse Practitioner Family
DX: N17.8 Other acute kidney failure (principal); N39.8 Other specified disorders of urinary system

== ENCOUNTER → 2024-05-20 | Outpatient (CLI) | payer OTHER ==
[2024-05-20 11:50] LABS: BASO # 0.1 10*3/uL (0.0-0.1); BASO % 0.3 % (0.0-1.0); EOS # 0.2 10*3/uL (0.0-0.4); EOS % 1.2 % (1.0-4.0); HEMATOCRIT 33.2 % (37.0-47.0); LYMPH # 3.7 10*3/uL (1.3-4.4); LYMPH % 25.3 % (27.0-41.0); MEAN CELL VOLUME 93.5 fl (81.0-99.0); MEAN CORPUSCULAR HGB 29.9 pg (27.0-31.0); MEAN CORPUSCULAR HGB CONC 31.9 g/dl (33.0-37.0); MEAN PLATELET VOLUME 10.3 fl (9.6-12.3); MONO # 0.8 10*3/uL (0.1-1.0); MONO % 5.6 % (3.0-9.0); NEUT # 9.6 10*3/uL (2.3-7.9); NEUT % 66.4 % (47.0-73.0); PLATELET COUNT AUTOMATED 326 10*3/uL (130-400); RED BLOOD COUNT 3.55 10*6/uL (4.10-5.10); RED CELL DISTRI WIDTH 17.3 % (0-14.5); WHITE BLOOD COUNT 14.6 10*3/uL (4.8-10.8)
[2024-05-20 11:54] LABS: BILIRUBIN Negative (Negative); BLOOD Negative (Negative); CLARITY Clear (Clear); COLOR Yellow (Yellow); GLUCOSE Negative (Negative); KETONE Negative (Negative); LEUKO ESTERASE Negative (Negative); NITRITE Negative (Negative); PH 5.5 (4.5-8.0); SPECIFIC GRAVITY 1.015 (1.001-1.030)
[2024-05-20 12:07] LABS: URINE CREATININE RANDOM 99.69 mg/dL
[2024-05-20 12:12] LABS: POTASSIUM 4.3 mmol/L (3.4-5.1); TOTAL PROTEIN 7.3 gm/dL (6.0-8.0)
[2024-05-20 12:22] LABS: RBC 0-2 rbc/hpf (0-2)
== END | disposition home or self-care (01) ==
LOC: LAB 01:04
PROVIDERS: ATTEND Nurse Practitioner Family
DX: R80.9 Proteinuria, unspecified (principal); N17.8 Other acute kidney failure

== ENCOUNTER → 2024-05-27 | Outpatient (CLI) | payer OTHER ==
[2024-05-27 11:31] LABS: BASO # 0.1 10*3/uL (0.0-0.1); BASO % 0.4 % (0.0-1.0); EOS # 0.1 10*3/uL (0.0-0.4); EOS % 1.1 % (1.0-4.0); HEMATOCRIT 31.6 % (37.0-47.0); LYMPH # 3.5 10*3/uL (1.3-4.4); LYMPH % 26.4 % (27.0-41.0); MEAN CELL VOLUME 94.3 fl (81.0-99.0); MEAN CORPUSCULAR HGB 30.7 pg (27.0-31.0); MEAN CORPUSCULAR HGB CONC 32.6 g/dl (33.0-37.0); MEAN PLATELET VOLUME 10.2 fl (9.6-12.3); MONO # 0.7 10*3/uL (0.1-1.0); MONO % 5.4 % (3.0-9.0); NEUT # 8.7 10*3/uL (2.3-7.9); NEUT % 65.3 % (47.0-73.0); PLATELET COUNT AUTOMATED 271 10*3/uL (130-400); RED BLOOD COUNT 3.35 10*6/uL (4.10-5.10); RED CELL DISTRI WIDTH 17.2 % (0-14.5); WHITE BLOOD COUNT 13.3 10*3/uL (4.8-10.8)
[2024-05-27 11:49] LABS: BILIRUBIN Negative (Negative); BLOOD Negative (Negative); CLARITY Cloudy (Clear); COLOR Yellow (Yellow); GLUCOSE Negative (Negative); KETONE Negative (Negative); LEUKO ESTERASE Trace (Negative); NITRITE Negative (Negative); PH 5.5 (4.5-8.0)
[2024-05-27 11:51] LABS: URINE CREATININE RANDOM 133.65 mg/dL
[2024-05-27 12:04] LABS: ALKALINE PHOSPHATASE 77 U/L (46-116); BUN 24 mg/dl (9-23); CHLORIDE 101 mmol/L (98-107); POTASSIUM 3.7 mmol/L (3.4-5.1); SGPT/ALT 28 U/L (5-49); TOTAL PROTEIN 7.1 gm/dL (6.0-8.0)
[2024-05-27 13:04] LABS: BACTERIA 3+; EPITHELIAL CELLS 16-20; MUCOUS TRACE
== END ==
LOC: LAB 11:01
PROVIDERS: ATTEND Nurse Practitioner Family
DX: N17.8 Other acute kidney failure (principal); R80.9 Proteinuria, unspecified

== ENCOUNTER → 2024-06-03 | Outpatient (CLI) | payer OTHER ==
[2024-06-03 11:24] LABS: BILIRUBIN Negative (Negative); BLOOD Negative (Negative); CLARITY Clear (Clear); COLOR Yellow (Yellow); GLUCOSE Negative (Negative); KETONE Negative (Negative); LEUKO ESTERASE Trace (Negative); NITRITE Negative (Negative); PH 5.5 (4.5-8.0); UROBILINOGEN 0.2 E.U./dl (0.0-1.0)
[2024-06-03 11:26] LABS: BASO % 0.2 % (0.0-1.0); EOS # 0.1 10*3/uL (0.0-0.4); EOS % 0.8 % (1.0-4.0); LYMPH # 3.4 10*3/uL (1.3-4.4); LYMPH % 24.4 % (27.0-41.0); MEAN CELL VOLUME 95.9 fl (81.0-99.0); MEAN CORPUSCULAR HGB 29.9 pg (27.0-31.0); MEAN CORPUSCULAR HGB CONC 31.2 g/dl (33.0-37.0); MEAN PLATELET VOLUME 10.4 fl (9.6-12.3); MONO # 0.8 10*3/uL (0.1-1.0); MONO % 5.5 % (3.0-9.0); NEUT # 9.6 10*3/uL (2.3-7.9); NEUT % 67.9 % (47.0-73.0); PLATELET COUNT AUTOMATED 269 10*3/uL (130-400); RED BLOOD COUNT 3.44 10*6/uL (4.10-5.10); RED CELL DISTRI WIDTH 17.2 % (0-14.5); WHITE BLOOD COUNT 14.1 10*3/uL (4.8-10.8)
[2024-06-03 11:34] LABS: URINE CREATININE RANDOM 37.76 mg/dL
[2024-06-03 11:47] LABS: RBC 0-2 rbc/hpf (0-2)
[2024-06-03 11:59] LABS: ALKALINE PHOSPHATASE 78 U/L (46-116); BUN 30 mg/dl (9-23); CHLORIDE 102 mmol/L (98-107); POTASSIUM 3.8 mmol/L (3.4-5.1); SGPT/ALT 22 U/L (5-49); TOTAL PROTEIN 7.3 gm/dL (6.0-8.0)
== END | disposition home or self-care (01) ==
LOC: LAB 01:40
PROVIDERS: ATTEND Nurse Practitioner Family
DX: R80.9 Proteinuria, unspecified (principal); N17.8 Other acute kidney failure

== ENCOUNTER → 2024-08-01 | Outpatient (CLI) | payer OTHER ==
[2024-08-01 12:29] LABS: BASO % 0.5 % (0.0-1.0); EOS # 0.2 10*3/uL (0.0-0.4); EOS % 1.8 % (1.0-4.0); HEMATOCRIT 27.4 % (37.0-47.0); LYMPH # 1.4 10*3/uL (1.3-4.4); LYMPH % 17.2 % (27.0-41.0); MEAN CELL VOLUME 97.2 fl (81.0-99.0); MEAN CORPUSCULAR HGB 30.9 pg (27.0-31.0); MEAN CORPUSCULAR HGB CONC 31.8 g/dl (33.0-37.0); MEAN PLATELET VOLUME 10.5 fl (9.6-12.3); MONO # 0.5 10*3/uL (0.1-1.0); MONO % 5.8 % (3.0-9.0); PLATELET COUNT AUTOMATED 244 10*3/uL (130-400); RED BLOOD COUNT 2.82 10*6/uL (4.10-5.10); RED CELL DISTRI WIDTH 16.6 % (0-14.5); WHITE BLOOD COUNT 8.1 10*3/uL (4.8-10.8)
[2024-08-01 12:31] LABS: BILIRUBIN Negative (Negative); BLOOD Negative (Negative); CLARITY Cloudy (Clear); COLOR Yellow (Yellow); GLUCOSE 2+ (Negative); KETONE Trace (Negative); LEUKO ESTERASE Negative (Negative); NITRITE Negative (Negative); SPECIFIC GRAVITY >= 1.030 (1.001-1.030)
[2024-08-01 12:40] LABS: EPITHELIAL CELLS 16-20
[2024-08-01 12:41] LABS: MUCOUS 1+; RBC 0-2 rbc/hpf (0-2)
[2024-08-01 13:15] LABS: ALKALINE PHOSPHATASE 106 U/L (46-116); BUN 23 mg/dl (9-23); CHLORIDE 102 mmol/L (98-107); POTASSIUM 4.3 mmol/L (3.4-5.1); SGPT/ALT 21 U/L (5-49); TOTAL PROTEIN 6.8 gm/dL (6.0-8.0)
[2024-08-01 13:20] LABS: VITAMIN D, 25-HYDROXY 28.2 ng/mL (30-100)
== END | disposition home or self-care (01) ==
LOC: LAB 11:47
PROVIDERS: ATTEND Nurse Practitioner Family
DX: E11.9 Type 2 diabetes mellitus without complications (principal); D64.9 Anemia, unspecified; N17.8 Other acute kidney failure; E55.9 Vitamin D deficiency, unspecified

== ENCOUNTER → 2024-08-28 | Outpatient (CLI) | payer OTHER ==
[2024-08-28 15:05] LABS: BASO % 0.4 % (0.0-1.0); EOS # 0.3 10*3/uL (0.0-0.4); EOS % 2.6 % (1.0-4.0); HEMATOCRIT 28.3 % (37.0-47.0); LYMPH # 1.5 10*3/uL (1.3-4.4); LYMPH % 15.5 % (27.0-41.0); MEAN CELL VOLUME 91.9 fl (81.0-99.0); MEAN CORPUSCULAR HGB 28.2 pg (27.0-31.0); MEAN CORPUSCULAR HGB CONC 30.7 g/dl (33.0-37.0); MEAN PLATELET VOLUME 10.3 fl (9.6-12.3); MONO # 0.6 10*3/uL (0.1-1.0); MONO % 5.8 % (3.0-9.0); NEUT # 7.1 10*3/uL (2.3-7.9); NEUT % 75.3 % (47.0-73.0); PLATELET COUNT AUTOMATED 311 10*3/uL (130-400); RED BLOOD COUNT 3.08 10*6/uL (4.10-5.10); RED CELL DISTRI WIDTH 17.2 % (0-14.5); WHITE BLOOD COUNT 9.5 10*3/uL (4.8-10.8)
[2024-08-28 15:06] LABS: BILIRUBIN Negative (Negative); BLOOD Negative (Negative); CLARITY Cloudy (Clear); COLOR Yellow (Yellow); GLUCOSE Negative (Negative); KETONE Negative (Negative); LEUKO ESTERASE Negative (Negative); NITRITE Negative (Negative); SPECIFIC GRAVITY >= 1.030 (1.001-1.030)
[2024-08-28 15:16] LABS: URINE CREATININE RANDOM 201.98 mg/dL
[2024-08-28 15:34] LABS: POTASSIUM 4.4 mmol/L (3.4-5.1); TOTAL PROTEIN 7.3 gm/dL (6.0-8.0)
[2024-08-28 15:42] LABS: BACTERIA 1+
[2024-08-28 15:43] LABS: MUCOUS 1+
== END | disposition home or self-care (01) ==
LOC: LAB 14:27
PROVIDERS: ATTEND Internal Medicine Nephrology
DX: R80.9 Proteinuria, unspecified (principal)

== ENCOUNTER → 2024-09-19 | Outpatient (CLI) | payer OTHER ==
[~2024-09-19] MED LIST changes: +ADV 100/50 INH; +GLIPIZIDE10 M1 PO; +GOOD NEIGHBOR L10 MG PO; +LISINOPRIL20 MG PO; +LISINOPRIL40 MG PO; +MONTELUKAST SOD10 MG PO; +PRAVASTATIN SOD20 MG PO
[2024-09-19 11:09] LABS: BASO % 0.2 % (0.0-1.0); EOS # 0.2 10*3/uL (0.0-0.4); EOS % 1.2 % (1.0-4.0); HEMATOCRIT 33.9 % (37.0-47.0); LYMPH # 2.6 10*3/uL (1.3-4.4); LYMPH % 20.9 % (27.0-41.0); MEAN CELL VOLUME 91.4 fl (81.0-99.0); MEAN CORPUSCULAR HGB 26.7 pg (27.0-31.0); MEAN CORPUSCULAR HGB CONC 29.2 g/dl (33.0-37.0); MEAN PLATELET VOLUME 10.3 fl (9.6-12.3); MONO # 0.8 10*3/uL (0.1-1.0); MONO % 6.6 % (3.0-9.0); NEUT # 8.7 10*3/uL (2.3-7.9); NEUT % 70.7 % (47.0-73.0); PLATELET COUNT AUTOMATED 397 10*3/uL (130-400); RED BLOOD COUNT 3.71 10*6/uL (4.10-5.10); RED CELL DISTRI WIDTH 16.2 % (0-14.5); WHITE BLOOD COUNT 12.3 10*3/uL (4.8-10.8)
[2024-09-19 11:18] LABS: BILIRUBIN Negative (Negative); BLOOD Negative (Negative); CLARITY Clear (Clear); COLOR Yellow (Yellow); GLUCOSE Negative (Negative); KETONE Negative (Negative); LEUKO ESTERASE Negative (Negative); NITRITE Negative (Negative); UROBILINOGEN 0.2 E.U./dl (0.0-1.0)
[2024-09-19 11:28] LABS: URINE CREATININE RANDOM 64.16 mg/dL
[2024-09-19 11:31] LABS: BACTERIA 2+; EPITHELIAL CELLS 16-20
[2024-09-19 11:35] LABS: POTASSIUM 3.7 mmol/L (3.4-5.1)
== END | disposition home or self-care (01) ==
LOC: LAB 10:51
PROVIDERS: ATTEND Internal Medicine Nephrology
DX: R80.9 Proteinuria, unspecified (principal)

== ENCOUNTER → 2024-10-30 | Outpatient (CLI) | payer OTHER ==
[2024-10-30 11:44] LABS: BASO % 0.2 % (0.0-1.0); EOS # 0.1 10*3/uL (0.0-0.4); EOS % 0.6 % (1.0-4.0); HEMATOCRIT 36.1 % (37.0-47.0); MEAN CELL VOLUME 86.8 fl (81.0-99.0); MEAN CORPUSCULAR HGB 26.2 pg (27.0-31.0); MEAN CORPUSCULAR HGB CONC 30.2 g/dl (33.0-37.0); MEAN PLATELET VOLUME 9.6 fl (9.6-12.3); MONO # 0.7 10*3/uL (0.1-1.0); MONO % 4.7 % (3.0-9.0); NEUT # 9.9 10*3/uL (2.3-7.9); NEUT % 69.6 % (47.0-73.0); PLATELET COUNT AUTOMATED 254 10*3/uL (130-400); RED BLOOD COUNT 4.16 10*6/uL (4.10-5.10); RED CELL DISTRI WIDTH 18.2 % (0-14.5); WHITE BLOOD COUNT 14.2 10*3/uL (4.8-10.8)
[2024-10-30 11:51] LABS: BILIRUBIN Negative (Negative); BLOOD Negative (Negative); CLARITY Cloudy (Clear); COLOR Yellow (Yellow); GLUCOSE Negative (Negative); KETONE Negative (Negative); LEUKO ESTERASE Negative (Negative); NITRITE Negative (Negative); PH 5.5 (4.5-8.0); SPECIFIC GRAVITY 1.015 (1.001-1.030); UROBILINOGEN 0.2 E.U./dl (0.0-1.0)
[2024-10-30 12:23] LABS: TOTAL PROTEIN 7.4 gm/dL (6.0-8.0)
[2024-10-30 13:15] LABS: BACTERIA 2+; EPITHELIAL CELLS 21-30; WBC 0-2 wbc/hpf (0-5)
== END | disposition home or self-care (01) ==
LOC: LAB 11:20
PROVIDERS: ATTEND Nurse Practitioner Family
DX: E11.9 Type 2 diabetes mellitus without complications (principal); N39.0 Urinary tract infection, site not specified; R80.9 Proteinuria, unspecified; D64.9 Anemia, unspecified; E55.9 Vitamin D deficiency, unspecified; N17.8 Other acute kidney failure

== ENCOUNTER → 2025-01-01 | Outpatient (CLI) | payer OTHER ==
[2025-01-01 12:16] LABS: BASO % 0.2 % (0.0-1.0); BILIRUBIN Negative (Negative); BLOOD Negative (Negative); CLARITY Clear (Clear); COLOR Yellow (Yellow); EOS # 0.2 10*3/uL (0.0-0.4); EOS % 1.5 % (1.0-4.0); GLUCOSE Negative (Negative); HEMATOCRIT 31.3 % (37.0-47.0); KETONE Trace (Negative); LEUKO ESTERASE Trace (Negative); MEAN CELL VOLUME 98.4 fl (81.0-99.0); MEAN CORPUSCULAR HGB 30.2 pg (27.0-31.0); MEAN CORPUSCULAR HGB CONC 30.7 g/dl (33.0-37.0); MEAN PLATELET VOLUME 10.1 fl (9.6-12.3); MONO # 0.7 10*3/uL (0.1-1.0); MONO % 5.6 % (3.0-9.0); NEUT # 8.7 10*3/uL (2.3-7.9); NEUT % 67.4 % (47.0-73.0); NITRITE Negative (Negative); PH 5.5 (4.5-8.0); PLATELET COUNT AUTOMATED 290 10*3/uL (130-400); RED BLOOD COUNT 3.18 10*6/uL (4.10-5.10); RED CELL DISTRI WIDTH 18.6 % (0-14.5); SPECIFIC GRAVITY 1.015 (1.001-1.030)
[2025-01-01 12:37] LABS: POTASSIUM 4.9 mmol/L (3.4-5.1); TOTAL PROTEIN 7.1 gm/dL (6.0-8.0)
[2025-01-01 13:52] LABS: BACTERIA 1+
== END | disposition home or self-care (01) ==
LOC: LAB 11:37
PROVIDERS: ATTEND Nurse Practitioner Family
DX: N17.8 Other acute kidney failure (principal); R80.9 Proteinuria, unspecified; D64.9 Anemia, unspecified

== ENCOUNTER → 2025-01-19 | Outpatient (CLI) | payer OTHER ==
[2025-01-19 10:28] LABS: BASO # 0.1 10*3/uL (0.0-0.1); BASO % 0.4 % (0.0-1.0); EOS # 0.2 10*3/uL (0.0-0.4); EOS % 1.3 % (1.0-4.0); HEMATOCRIT 31.9 % (37.0-47.0); MEAN CELL VOLUME 101.6 fl (81.0-99.0); MEAN CORPUSCULAR HGB 30.6 pg (27.0-31.0); MEAN CORPUSCULAR HGB CONC 30.1 g/dl (33.0-37.0); MEAN PLATELET VOLUME 10.2 fl (9.6-12.3); MONO # 0.8 10*3/uL (0.1-1.0); MONO % 5.9 % (3.0-9.0); NEUT # 9.3 10*3/uL (2.3-7.9); NEUT % 68.5 % (47.0-73.0); PLATELET COUNT AUTOMATED 273 10*3/uL (130-400); RED BLOOD COUNT 3.14 10*6/uL (4.10-5.10); RED CELL DISTRI WIDTH 17.1 % (0-14.5); WHITE BLOOD COUNT 13.6 10*3/uL (4.8-10.8)
[2025-01-19 10:57] LABS: ALKALINE PHOSPHATASE 70 U/L (46-116); BUN 35 mg/dl (9-23); CHLORIDE 100 mmol/L (98-107); CHOLESTEROL 385 mg/dL (<200); POTASSIUM 4.5 mmol/L (3.4-5.1); SGPT/ALT 21 U/L (5-49); TOTAL PROTEIN 7.1 gm/dL (6.0-8.0); TRIGLYCERIDES 457 mg/dl (<150)
== END | disposition home or self-care (01) ==
LOC: LAB 09:57
PROVIDERS: ATTEND Nurse Practitioner Primary Care
DX: I10 Essential (primary) hypertension (principal); R06.01 Orthopnea; R01.1 Cardiac murmur, unspecified; E03.9 Hypothyroidism, unspecified; E78.2 Mixed hyperlipidemia

== ENCOUNTER → 2025-01-27 | Outpatient (CLI) | payer OTHER | END | disposition home or self-care (01) | LOC: CARD 14:37 | PROVIDERS: ATTEND Nurse Practitioner Primary Care | DX: R06.01 Orthopnea (principal); R01.1 Cardiac murmur, unspecified ==

== ENCOUNTER → 2025-02-12 | Outpatient (CLI) | payer OTHER ==
[2025-02-12 11:21] LABS: BASO # 0.1 10*3/uL (0.0-0.1); BASO % 0.3 % (0.0-1.0); EOS # 0.2 10*3/uL (0.0-0.4); EOS % 1.2 % (1.0-4.0); HEMATOCRIT 33.9 % (37.0-47.0); MEAN CELL VOLUME 97.7 fl (81.0-99.0); MEAN CORPUSCULAR HGB 30.5 pg (27.0-31.0); MEAN CORPUSCULAR HGB CONC 31.3 g/dl (33.0-37.0); MEAN PLATELET VOLUME 10.4 fl (9.6-12.3); MONO # 0.9 10*3/uL (0.1-1.0); MONO % 5.9 % (3.0-9.0); NEUT # 10.3 10*3/uL (2.3-7.9); NEUT % 66.7 % (47.0-73.0); PLATELET COUNT AUTOMATED 312 10*3/uL (130-400); RED BLOOD COUNT 3.47 10*6/uL (4.10-5.10); RED CELL DISTRI WIDTH 16.2 % (0-14.5); WHITE BLOOD COUNT 15.4 10*3/uL (4.8-10.8)
[2025-02-12 11:42] LABS: BILIRUBIN Negative (Negative); BLOOD Negative (Negative); CLARITY Cloudy (Clear); COLOR Yellow (Yellow); GLUCOSE Negative (Negative); KETONE Trace (Negative); LEUKO ESTERASE Negative (Negative); NITRITE Negative (Negative); UROBILINOGEN 0.2 E.U./dl (0.0-1.0)
[2025-02-12 11:58] LABS: BACTERIA 2+; EPITHELIAL CELLS 31-40
[2025-02-12 12:11] LABS: POTASSIUM 4.6 mmol/L (3.4-5.1); TOTAL PROTEIN 7.2 gm/dL (6.0-8.0)
== END | disposition home or self-care (01) ==
LOC: LAB 10:32
PROVIDERS: ATTEND Nurse Practitioner Family
DX: R80.9 Proteinuria, unspecified (principal); E55.9 Vitamin D deficiency, unspecified; D64.9 Anemia, unspecified; E11.9 Type 2 diabetes mellitus without complications; N17.8 Other acute kidney failure

== ENCOUNTER 2025-03-03 16:11 | Inpatient (IN) | payer OTHER ==
[~2025-03-03] VITALS: Ht 167.6 cm; Wt 127.2 kg
[2025-03-03 16:50] VITALS: BP 114/53
[2025-03-03] MEDS ORDERED: PREDNISONE10 MG PO (16:51)
[2025-03-03 17:19] LABS: BASO % 0.2 % (0.0-1.0); EOS % 0.1 % (1.0-4.0); HEMATOCRIT 32.8 % (37.0-47.0); MEAN CELL VOLUME 95.9 fl (81.0-99.0); MEAN CORPUSCULAR HGB 30.7 pg (27.0-31.0); MEAN PLATELET VOLUME 10.7 fl (9.6-12.3); MONO # 0.4 10*3/uL (0.1-1.0); MONO % 3.1 % (3.0-9.0); NEUT # 11.7 10*3/uL (2.3-7.9); PLATELET COUNT AUTOMATED 288 10*3/uL (130-400); RED BLOOD COUNT 3.42 10*6/uL (4.10-5.10); RED CELL DISTRI WIDTH 16.8 % (0-14.5)
[2025-03-03 17:51] LABS: POTASSIUM 6.2 mmol/L (3.4-5.1)
[2025-03-03] MEDS ORDERED: Albuterol Sulfate 2.5 MG/3 ML VIAL NEB ONE (18:05)
[2025-03-03] MEDS ORDERED: INSULIN REGULAR, HUMAN 1 UNIT/0.01 ML IV ONE (18:05)
[2025-03-03] MEDS ORDERED: FUROSEMIDE 40 MG/4 ML VIAL IV ONE (18:05)
[2025-03-03 19:30] VITALS: BP 94/65
[2025-03-03 19:47] VITALS: BP 98/52
[2025-03-03] MEDS ORDERED: BISACODYL 5 MG TAB PO PRN (20:10)
[2025-03-03] MEDS ORDERED: ACETAMINOPHEN 325 MG TAB PO PRN (20:10)
[2025-03-03] MEDS ORDERED: BISACODYL 10 MG SUPP R PRN (20:10)
[2025-03-03] MEDS ORDERED: Magnesium Hydroxide 30 ML UDC PO PRN (20:10)
[2025-03-03] MEDS ORDERED: ACETAMINOPHEN 650 MG SUPP R PRN (20:10)
[2025-03-03] MEDS ORDERED: Ondansetron Hydrochloride 4 MG/2 ML VIAL IV PRN (20:10)
[2025-03-03] MEDS ORDERED: DEXTROSE 10 % IN WATER 250 ML IV PRN (20:20)
[2025-03-03] MEDS ORDERED: CALCIUM GLUC IN NACL, ISO-OSM 100 ML IV ONE (20:30)
[2025-03-03 21:57] VITALS: BP 129/54
[2025-03-03] MEDS ORDERED: INSULIN LISPRO 1 UNIT/0.01 ML SQ SCH (22:00)
[2025-03-04] VITALS: BP 113/50
[2025-03-04 05:43] LABS: POTASSIUM 4.5 mmol/L (3.4-5.1); TOTAL PROTEIN 7.1 gm/dL (6.0-8.0)
[2025-03-04 06:23] LABS: BASO % 0.3 % (0.0-1.0); EOS # 0.1 10*3/uL (0.0-0.4); EOS % 0.9 % (1.0-4.0); MEAN CELL VOLUME 98.2 fl (81.0-99.0); MEAN CORPUSCULAR HGB 30.4 pg (27.0-31.0); MEAN CORPUSCULAR HGB CONC 30.9 g/dl (33.0-37.0); MEAN PLATELET VOLUME 10.7 fl (9.6-12.3); MONO # 0.8 10*3/uL (0.1-1.0); MONO % 6.3 % (3.0-9.0); NEUT # 8.8 10*3/uL (2.3-7.9); NEUT % 66.7 % (47.0-73.0); NUCLEATED RED BLOOD CELL 0.2 % (0.0-0.0); PLATELET COUNT AUTOMATED 262 10*3/uL (130-400); RED BLOOD COUNT 3.26 10*6/uL (4.10-5.10); RED CELL DISTRI WIDTH 16.5 % (0-14.5); WHITE BLOOD COUNT 13.2 10*3/uL (4.8-10.8)
[2025-03-04 08:44] VITALS: BP 110/52
[2025-03-04] MEDS ORDERED: FUROSEMIDE 40 MG/4 ML VIAL IV SCH (10:00)
[2025-03-04] MEDS ORDERED: Enoxaparin Sodium 30 MG/0.3 ML SYR SC SCH (10:00)
[2025-03-04] MEDS ORDERED: FUROSEMIDE 20 MG/2 ML VIAL IV SCH (10:00)
[2025-03-04] MEDS ORDERED: predniSONE 10 MG TAB PO SCH (10:18)
[2025-03-04] MEDS ORDERED: [UNRECOGNIZED DRUG - OTHER] MC (11:15)
[2025-03-04] MEDS ORDERED: FLUONAZOLE150 M1 PO (11:18)
[2025-03-04] MEDS ORDERED: MULTI-VITAMIN1 EACH PO (11:19)
[2025-03-04] MEDS ORDERED: PREDNISONE20 M1 PO (11:21)
[2025-03-04] MEDS ORDERED: SEPTDS PO (11:21)
[2025-03-04] MEDS ORDERED: CETIRIZINE10 MG PO (11:22)
[2025-03-04] MEDS ORDERED: BUMETANIDE1 MG PO (11:23)
[2025-03-04] MEDS ORDERED: GLIPIZIDE XL10 M1 PO (11:24)
[2025-03-04] MEDS ORDERED: LORADAMED10 MG PO (11:24)
[2025-03-04] MEDS ORDERED: ANTIFUNGAL CRE141 GM T (11:32)
[2025-03-04] MEDS ORDERED: VALACYCLOVIR500 M1 PO (11:33)
[2025-03-04] MEDS ORDERED: VITAMIN B121000 MC3 PO (11:33)
[2025-03-04] MEDS ORDERED: LOPERAMIDE HCL2 MG PO (11:34)
[2025-03-04 12:00] VITALS: BP 110/64
[2025-03-04] MEDS ORDERED: CALCIUM ACETATE 667 MG CAP PO SCH (12:00)
[2025-03-04 16:00] VITALS: BP 138/68
[2025-03-04 16:35] LABS: POTASSIUM 5.7 mmol/L (3.4-5.1)
[2025-03-04] MEDS ORDERED: BUMETANIDE 1 MG/4 ML VIAL IV SCH (18:00)
[2025-03-04] MEDS ORDERED: SODIUM POLYSTYRENE SULFONATE 15 GM/60 ML BOT PO ONE (19:05)
[2025-03-04 20:00] VITALS: BP 118/63; BP 134/70
[2025-03-04] MEDS ORDERED: Miconazole Nitrate 2% 15 GM TUBE T SCH (22:00)
[2025-03-05] VITALS: BP 104/62
[2025-03-05 00:24] LABS: POTASSIUM 4.7 mmol/L (3.4-5.1)
[2025-03-05 05:06] LABS: HBsAG SCREEN Negative (Negative); HCV Ab Non Reactive (Non Reactive); HEP B CORE Ab, IgM Negative (Negative)
[2025-03-05 06:16] LABS: FREE T4 1.25 ng/dl (0.89-1.76); POTASSIUM 4.3 mmol/L (3.4-5.1)
[2025-03-05 06:23] LABS: BASO % 0.2 % (0.0-1.0); EOS # 0.1 10*3/uL (0.0-0.4); HEMATOCRIT 32.7 % (37.0-47.0); MEAN CORPUSCULAR HGB 30.3 pg (27.0-31.0); MEAN CORPUSCULAR HGB CONC 31.2 g/dl (33.0-37.0); MEAN PLATELET VOLUME 11.1 fl (9.6-12.3); MONO # 0.7 10*3/uL (0.1-1.0); MONO % 5.5 % (3.0-9.0); NEUT # 8.6 10*3/uL (2.3-7.9); NEUT % 68.8 % (47.0-73.0); PLATELET COUNT AUTOMATED 273 10*3/uL (130-400); RED BLOOD COUNT 3.37 10*6/uL (4.10-5.10); RED CELL DISTRI WIDTH 17.1 % (0-14.5); WHITE BLOOD COUNT 12.5 10*3/uL (4.8-10.8)
[2025-03-05 08:00] VITALS: BP 124/69
[2025-03-05] MEDS ORDERED: Vitamin D 1,000 IU TAB (25 MCG) PO SCH (10:00)
[2025-03-05] MEDS ORDERED: Cetirizine Hydrochloride 10 MG TAB PO SCH (10:00)
[2025-03-05] MEDS ORDERED: ATORVASTATIN CALCIUM 10 MG TAB PO SCH (10:00)
[2025-03-05] MEDS ORDERED: FLUCONAZOLE 150 MG TAB PO SCH (10:00)
[2025-03-05] MEDS ORDERED: CYANOCOBALAMIN 500 MCG TAB PO SCH (10:00)
[2025-03-05] MEDS ORDERED: Enoxaparin Sodium 40 MG/0.4 ML SYR SC SCH (10:00)
[2025-03-05] MEDS ORDERED: THYROID 30 MG TAB PO SCH (10:00)
[2025-03-05 12:00] VITALS: BP 120/74
[2025-03-05 16:00] VITALS: BP 116/52
[2025-03-05] MEDS ORDERED: PAROXETINE40 MG PO (17:17)
[2025-03-05 20:00] VITALS: BP 128/86
[2025-03-06] VITALS: BP 139/58
[2025-03-06 05:11] LABS: POTASSIUM 4.8 mmol/L (3.4-5.1)
[2025-03-06 06:15] LABS: BASO % 0.3 % (0.0-1.0); EOS # 0.1 10*3/uL (0.0-0.4); EOS % 1.3 % (1.0-4.0); HEMATOCRIT 33.3 % (37.0-47.0); MEAN CELL VOLUME 97.1 fl (81.0-99.0); MEAN CORPUSCULAR HGB 30.3 pg (27.0-31.0); MEAN CORPUSCULAR HGB CONC 31.2 g/dl (33.0-37.0); MEAN PLATELET VOLUME 10.8 fl (9.6-12.3); MONO # 0.8 10*3/uL (0.1-1.0); MONO % 7.1 % (3.0-9.0); NEUT # 7.1 10*3/uL (2.3-7.9); NEUT % 63.7 % (47.0-73.0); PLATELET COUNT AUTOMATED 268 10*3/uL (130-400); RED BLOOD COUNT 3.43 10*6/uL (4.10-5.10); RED CELL DISTRI WIDTH 16.8 % (0-14.5); WHITE BLOOD COUNT 11.2 10*3/uL (4.8-10.8)
[2025-03-06 07:06] LABS: TB1 Ag VALUE 0.02 IU/mL (.)
[2025-03-06 08:00] VITALS: BP 99/50
[2025-03-06] MEDS ORDERED: predniSONE 10 MG TAB PO SCH (10:00)
[2025-03-06 10:43] VITALS: BP 98/60
[2025-03-06 12:00] VITALS: BP 132/78
[2025-03-06 16:00] VITALS: BP 123/62
[2025-03-06 20:00] VITALS: BP 140/61
[2025-03-07] VITALS: BP 142/78
[2025-03-07 06:01] LABS: POTASSIUM 4.2 mmol/L (3.4-5.1)
[2025-03-07 06:06] LABS: BASO % 0.2 % (0.0-1.0); EOS # 0.1 10*3/uL (0.0-0.4); EOS % 0.9 % (1.0-4.0); HEMATOCRIT 32.3 % (37.0-47.0); MEAN CELL VOLUME 94.2 fl (81.0-99.0); MEAN CORPUSCULAR HGB 30.3 pg (27.0-31.0); MEAN CORPUSCULAR HGB CONC 32.2 g/dl (33.0-37.0); MEAN PLATELET VOLUME 10.8 fl (9.6-12.3); MONO # 0.6 10*3/uL (0.1-1.0); MONO % 5.1 % (3.0-9.0); NEUT # 8.7 10*3/uL (2.3-7.9); PLATELET COUNT AUTOMATED 258 10*3/uL (130-400); RED BLOOD COUNT 3.43 10*6/uL (4.10-5.10); RED CELL DISTRI WIDTH 16.6 % (0-14.5); WHITE BLOOD COUNT 12.3 10*3/uL (4.8-10.8)
[2025-03-07 08:00] VITALS: BP 98/54
[2025-03-07] MEDS ORDERED: BUMETANIDE 1 MG TAB PO SCH (10:00)
[2025-03-07] MEDS ORDERED: PREDNISONE5 MG PO (12:30)
[2025-03-07] MEDS ORDERED: [UNRECOGNIZED DRUG - OTHER] PO (12:30)
[2025-03-07] MEDS ORDERED: TACROLIMUS PO (12:30)
== END 2025-03-07 12:53 | disposition home or self-care (01) | DRG 425 ==
LOC: ED 16:11 → 4E 18:33 → EDHOLD 18:33 → 4E 21:04
PROVIDERS: Internal Medicine; Student in an Organized Health Care Education/Training Program; ADMIT Internal Medicine; ATTEND Internal Medicine
DX: E87.5 Hyperkalemia (principal); N17.0 Acute kidney failure with tubular necrosis; R65.11 Systemic inflammatory response syndrome (SIRS) of non-infectious origin with acute organ dysfunction; E87.1 Hypo-osmolality and hyponatremia; E11.65 Type 2 diabetes mellitus with hyperglycemia; I50.32 Chronic diastolic (congestive) heart failure; N05.0 Unspecified nephritic syndrome with minor glomerular abnormality; N18.9 Chronic kidney disease, unspecified; E11.22 Type 2 diabetes mellitus with diabetic chronic kidney disease; F33.41 Major depressive disorder, recurrent, in partial remission; D72.825 Bandemia; D64.9 Anemia, unspecified; I13.0 Hypertensive heart and chronic kidney disease with heart failure and stage 1 through stage 4 chronic kidney disease, or unspecified chronic kidney disease; E78.2 Mixed hyperlipidemia; N39.46 Mixed incontinence; Z87.891 Personal history of nicotine dependence; Z82.49 Family history of ischemic heart disease and other diseases of the circulatory system; Z83.3 Family history of diabetes mellitus; Z91.018 Allergy to other foods; Z79.899 Other long term (current) drug therapy

== ENCOUNTER → 2025-03-13 | Outpatient (CLI) | payer OTHER ==
[~2025-03-13] MED LIST changes: +ANTIFUNGAL CRE141 GM T; +CETIRIZINE10 MG PO; +FLUONAZOLE150 M1 PO; +GLIPIZIDE XL10 M1 PO; +LOPERAMIDE HCL2 MG PO; +LORADAMED10 MG PO; +MULTI-VITAMIN1 EACH PO; +PAROXETINE40 MG PO; +PREDNISONE5 MG PO; +TACROLIMUS PO; +VALACYCLOVIR500 M1 PO; +VITAMIN B121000 MC3 PO; +[UNRECOGNIZED DRUG - OTHER] MC; +[UNRECOGNIZED DRUG - OTHER] PO
[2025-03-13 12:48] LABS: BASO % 0.1 % (0.0-1.0); EOS # 0.1 10*3/uL (0.0-0.4); EOS % 1.4 % (1.0-4.0); HEMATOCRIT 31.9 % (37.0-47.0); MEAN CELL VOLUME 95.8 fl (81.0-99.0); MEAN CORPUSCULAR HGB 29.4 pg (27.0-31.0); MEAN CORPUSCULAR HGB CONC 30.7 g/dl (33.0-37.0); MEAN PLATELET VOLUME 9.4 fl (9.6-12.3); MONO # 0.6 10*3/uL (0.1-1.0); MONO % 5.9 % (3.0-9.0); NEUT # 6.6 10*3/uL (2.3-7.9); NEUT % 67.3 % (47.0-73.0); NUCLEATED RED BLOOD CELL 0.2 % (0.0-0.0); PLATELET COUNT AUTOMATED 220 10*3/uL (130-400); RED BLOOD COUNT 3.33 10*6/uL (4.10-5.10); RED CELL DISTRI WIDTH 16.7 % (0-14.5); WHITE BLOOD COUNT 9.8 10*3/uL (4.8-10.8)
[2025-03-13 13:15] LABS: POTASSIUM 4.3 mmol/L (3.4-5.1)
== END | disposition home or self-care (01) ==
LOC: LAB 12:28
PROVIDERS: ATTEND Internal Medicine Nephrology
DX: N04.9 Nephrotic syndrome with unspecified morphologic changes (principal)

== ENCOUNTER → 2025-03-20 | Outpatient (CLI) | payer OTHER ==
[2025-03-20 11:42] LABS: BASO % 0.2 % (0.0-1.0); EOS # 0.2 10*3/uL (0.0-0.4); EOS % 1.4 % (1.0-4.0); MEAN CELL VOLUME 95.2 fl (81.0-99.0); MEAN CORPUSCULAR HGB 29.5 pg (27.0-31.0); MEAN CORPUSCULAR HGB CONC 30.9 g/dl (33.0-37.0); MEAN PLATELET VOLUME 10.6 fl (9.6-12.3); MONO # 0.8 10*3/uL (0.1-1.0); MONO % 6.1 % (3.0-9.0); NEUT # 8.3 10*3/uL (2.3-7.9); NEUT % 67.9 % (47.0-73.0); NUCLEATED RED BLOOD CELL 0.3 % (0.0-0.0); PLATELET COUNT AUTOMATED 263 10*3/uL (130-400); RED BLOOD COUNT 3.36 10*6/uL (4.10-5.10); RED CELL DISTRI WIDTH 17.1 % (0-14.5); WHITE BLOOD COUNT 12.2 10*3/uL (4.8-10.8)
[2025-03-20 12:15] LABS: TOTAL PROTEIN 6.9 gm/dL (6.0-8.0)
[2025-03-20 12:28] LABS: BILIRUBIN Negative (Negative); BLOOD Negative (Negative); CLARITY Clear (Clear); COLOR Yellow (Yellow); GLUCOSE Trace (Negative); KETONE Negative (Negative); LEUKO ESTERASE Negative (Negative); NITRITE Negative (Negative); PH 5.5 (4.5-8.0); UROBILINOGEN 0.2 E.U./dl (0.0-1.0)
[2025-03-20 14:00] LABS: BACTERIA 1+
== END | disposition home or self-care (01) ==
LOC: LAB 10:16
PROVIDERS: ATTEND Nurse Practitioner Family
DX: E11.9 Type 2 diabetes mellitus without complications (principal); R80.9 Proteinuria, unspecified; N17.8 Other acute kidney failure

== ENCOUNTER → 2025-03-23 | Day surgery (SDC) | payer OTHER ==
[~2025-03-23] VITALS: Ht 167.6 cm; Wt 126.1 kg
[~2025-03-23] MED LIST changes: +Lactated Ringer's Solution 1,000 ML IV ONE; +Lactated Ringer's Solution 1,000 ML IV SCH; +Lidocaine Hydrochloride 2% 5 ML SDV IV ONE; +PROPOFOL 200 MG/20 ML VIAL IV ONE
[2025-03-23 08:10] VITALS: BP 124/73
[2025-03-23 10:05] VITALS: BP 109/58
[2025-03-23 10:20] VITALS: BP 130/62
[2025-03-23 10:35] VITALS: BP 161/88
== END | disposition home or self-care (01) ==
LOC: SDC 03-20 08:45
PROVIDERS: ATTEND Surgery
DX: R19.5 Other fecal abnormalities (principal); K63.5 Polyp of colon; K62.1 Rectal polyp; K57.30 Diverticulosis of large intestine without perforation or abscess without bleeding; K64.4 Residual hemorrhoidal skin tags; I25.10 Atherosclerotic heart disease of native coronary artery without angina pectoris; E78.00 Pure hypercholesterolemia, unspecified; I11.0 Hypertensive heart disease with heart failure; I50.9 Heart failure, unspecified; J45.909 Unspecified asthma, uncomplicated; E11.9 Type 2 diabetes mellitus without complications; Z88.8 Allergy status to other drugs, medicaments and biological substances; Z79.899 Other long term (current) drug therapy; Z98.890 Other specified postprocedural states

== ENCOUNTER → 2025-03-27 | Outpatient (CLI) | payer OTHER ==
[~2025-03-27] MED LIST changes: -Lactated Ringer's Solution 1,000 ML IV ONE; -Lactated Ringer's Solution 1,000 ML IV SCH; -Lidocaine Hydrochloride 2% 5 ML SDV IV ONE; -PROPOFOL 200 MG/20 ML VIAL IV ONE
[2025-03-27 11:32] LABS: BASO % 0.3 % (0.0-1.0); EOS # 0.1 10*3/uL (0.0-0.4); EOS % 1.2 % (1.0-4.0); MEAN CELL VOLUME 93.9 fl (81.0-99.0); MEAN CORPUSCULAR HGB 28.8 pg (27.0-31.0); MEAN CORPUSCULAR HGB CONC 30.6 g/dl (33.0-37.0); MEAN PLATELET VOLUME 9.9 fl (9.6-12.3); MONO # 0.7 10*3/uL (0.1-1.0); MONO % 5.8 % (3.0-9.0); NEUT # 7.8 10*3/uL (2.3-7.9); NEUT % 69.7 % (47.0-73.0); PLATELET COUNT AUTOMATED 278 10*3/uL (130-400); RED CELL DISTRI WIDTH 17.2 % (0-14.5); WHITE BLOOD COUNT 11.2 10*3/uL (4.8-10.8)
[2025-03-27 11:35] LABS: BILIRUBIN Negative (Negative); BLOOD Negative (Negative); CLARITY Clear (Clear); COLOR Yellow (Yellow); GLUCOSE Negative (Negative); KETONE Trace (Negative); LEUKO ESTERASE Negative (Negative); NITRITE Negative (Negative); SPECIFIC GRAVITY 1.025 (1.001-1.030)
[2025-03-27 11:59] LABS: POTASSIUM 3.4 mmol/L (3.4-5.1)
[2025-03-27 12:06] LABS: BACTERIA 2+
== END | disposition home or self-care (01) ==
LOC: LAB 11:12
PROVIDERS: ATTEND Nurse Practitioner Family
DX: N17.8 Other acute kidney failure (principal); R80.9 Proteinuria, unspecified

== ENCOUNTER → 2025-04-02 | Outpatient (CLI) | payer OTHER ==
[2025-04-02 13:03] LABS: BASO % 0.3 % (0.0-1.0); EOS # 0.1 10*3/uL (0.0-0.4); HEMATOCRIT 31.4 % (37.0-47.0); MEAN CELL VOLUME 93.5 fl (81.0-99.0); MEAN CORPUSCULAR HGB 29.2 pg (27.0-31.0); MEAN CORPUSCULAR HGB CONC 31.2 g/dl (33.0-37.0); MEAN PLATELET VOLUME 10.2 fl (9.6-12.3); MONO # 0.6 10*3/uL (0.1-1.0); NEUT # 9.8 10*3/uL (2.3-7.9); NEUT % 84.1 % (47.0-73.0); PLATELET COUNT AUTOMATED 274 10*3/uL (130-400); RED BLOOD COUNT 3.36 10*6/uL (4.10-5.10); RED CELL DISTRI WIDTH 17.2 % (0-14.5); WHITE BLOOD COUNT 11.7 10*3/uL (4.8-10.8)
[2025-04-02 13:06] LABS: BILIRUBIN Negative (Negative); BLOOD Negative (Negative); CLARITY Clear (Clear); COLOR Yellow (Yellow); GLUCOSE 3+ (Negative); KETONE Negative (Negative); LEUKO ESTERASE Negative (Negative); NITRITE Negative (Negative)
[2025-04-02 13:27] LABS: POTASSIUM 4.2 mmol/L (3.4-5.1); TOTAL PROTEIN 6.9 gm/dL (6.0-8.0)
[2025-04-02 13:39] LABS: RBC 0-2 rbc/hpf (0-2); WBC 0-2 wbc/hpf (0-5)
[2025-04-02 13:40] LABS: BACTERIA TRACE
== END | disposition home or self-care (01) ==
LOC: LAB 12:24
PROVIDERS: ATTEND Internal Medicine Nephrology
DX: E11.9 Type 2 diabetes mellitus without complications (principal); N17.8 Other acute kidney failure; R80.9 Proteinuria, unspecified; N39.3 Stress incontinence (female) (male)

== ENCOUNTER → 2025-04-15 | Outpatient (CLI) | payer OTHER ==
[2025-04-15 11:56] LABS: BASO % 0.4 % (0.0-1.0); BILIRUBIN Negative (Negative); BLOOD Negative (Negative); CLARITY Cloudy (Clear); COLOR Yellow (Yellow); EOS # 0.2 10*3/uL (0.0-0.4); EOS % 2.1 % (1.0-4.0); GLUCOSE Negative (Negative); HEMATOCRIT 31.9 % (37.0-47.0); KETONE Negative (Negative); LEUKO ESTERASE 1+ (Negative); MEAN CELL VOLUME 92.7 fl (81.0-99.0); MEAN CORPUSCULAR HGB CONC 29.2 g/dl (33.0-37.0); MEAN PLATELET VOLUME 9.8 fl (9.6-12.3); MONO # 0.7 10*3/uL (0.1-1.0); MONO % 6.2 % (3.0-9.0); NEUT # 8.5 10*3/uL (2.3-7.9); NEUT % 75.5 % (47.0-73.0); NITRITE Negative (Negative); PH 5.5 (4.5-8.0); PLATELET COUNT AUTOMATED 261 10*3/uL (130-400); RED BLOOD COUNT 3.44 10*6/uL (4.10-5.10); RED CELL DISTRI WIDTH 17.1 % (0-14.5); WHITE BLOOD COUNT 11.2 10*3/uL (4.8-10.8)
[2025-04-15 12:19] LABS: ALKALINE PHOSPHATASE 94 U/L (46-116); BUN 18 mg/dl (9-23); CHLORIDE 99 mmol/L (98-107); POTASSIUM 3.8 mmol/L (3.4-5.1); SGPT/ALT 17 U/L (5-49); TOTAL PROTEIN 6.8 gm/dL (6.0-8.0)
[2025-04-15 12:36] LABS: BACTERIA 2+; EPITHELIAL CELLS 16-20; WBC 16-20 wbc/hpf (0-5)
== END | disposition home or self-care (01) ==
LOC: LAB 11:29
PROVIDERS: ATTEND Nurse Practitioner Family
DX: N17.8 Other acute kidney failure (principal); R80.9 Proteinuria, unspecified

== ENCOUNTER 2025-04-22 10:52 | Inpatient (IN) | payer OTHER ==
[~2025-04-22] VITALS: Ht 168 cm; Wt 132.7 kg
[2025-04-22 10:59] VITALS: BP 139/64
[2025-04-22] MEDS ORDERED: BUMETANIDE 1 MG/4 ML VIAL IV ONE (11:15)
[2025-04-22 11:26] LABS: BASO % 0.4 % (0.0-1.0); EOS # 0.2 10*3/uL (0.0-0.4); EOS % 2.3 % (1.0-4.0); HEMATOCRIT 30.6 % (37.0-47.0); MEAN CELL VOLUME 91.6 fl (81.0-99.0); MEAN CORPUSCULAR HGB 26.6 pg (27.0-31.0); MEAN CORPUSCULAR HGB CONC 29.1 g/dl (33.0-37.0); MEAN PLATELET VOLUME 9.7 fl (9.6-12.3); MONO # 0.6 10*3/uL (0.1-1.0); MONO % 5.3 % (3.0-9.0); NEUT # 7.9 10*3/uL (2.3-7.9); NEUT % 75.6 % (47.0-73.0); NUCLEATED RED BLOOD CELL 0.2 % (0.0-0.0); PLATELET COUNT AUTOMATED 290 10*3/uL (130-400); RED BLOOD COUNT 3.34 10*6/uL (4.10-5.10); RED CELL DISTRI WIDTH 17.5 % (0-14.5); WHITE BLOOD COUNT 10.4 10*3/uL (4.8-10.8)
[2025-04-22 11:45] LABS: BUN 23 mg/dl (9-23); CHLORIDE 99 mmol/L (98-107); POTASSIUM 3.5 mmol/L (3.4-5.1)
[2025-04-22] MEDS ORDERED: BISACODYL 5 MG TAB PO PRN (14:00)
[2025-04-22] MEDS ORDERED: Ondansetron Hydrochloride 4 MG/2 ML VIAL IV PRN (14:00)
[2025-04-22] MEDS ORDERED: Albuterol Sulf/Ipratropium 3 ML VIAL NEB PRN (14:10)
[2025-04-22] MEDS ORDERED: INSULIN PUMP (PT'S PUMP FROM HOME) SC SCH (14:20)
[2025-04-22] MEDS ORDERED: PREDNISONE10 M1 PO (15:03)
[2025-04-22] MEDS ORDERED: FERROUS GLUCON324 M2 PO (15:04)
[2025-04-22] MEDS ORDERED: FLONASE ALLERG9.9 ML NAS (15:05)
[2025-04-22] MEDS ORDERED: ROSUVASTATIN CA20 MG PO (15:05)
[2025-04-22] MEDS ORDERED: ADV 100/50 DEVI (15:07)
[2025-04-22] MEDS ORDERED: AIRSUPRA 90-810.7 GM INH (15:08)
[2025-04-22 15:16] VITALS: BP 114/50
[2025-04-22 16:35] VITALS: BP 165/77
[2025-04-22] MEDS ORDERED: predniSONE 5 MG TAB PO SCH (18:00)
[2025-04-22] MEDS ORDERED: BUDESONIDE 0.5 MG AMP NEB SCH (18:10)
[2025-04-22] MEDS ORDERED: Albuterol Sulfate 2.5 MG/3 ML VIAL NEB SCH (18:10)
[2025-04-22 19:59] VITALS: BP 146/60
[2025-04-22] MEDS ORDERED: HEPARIN SODIUM 5,000 UNIT/ML VIAL SC SCH (22:00)
[2025-04-22] MEDS ORDERED: Miconazole Nitrate 2% 15 GM TUBE T SCH (22:00)
[2025-04-23] VITALS: BP 146/66
[2025-04-23] MEDS ORDERED: THYROID 30 MG TAB PO SCH (06:00)
[2025-04-23 06:27] LABS: BASO # 0.1 10*3/uL (0.0-0.1); BASO % 0.4 % (0.0-1.0); EOS # 0.3 10*3/uL (0.0-0.4); EOS % 2.4 % (1.0-4.0); HEMATOCRIT 31.2 % (37.0-47.0); MEAN CELL VOLUME 90.4 fl (81.0-99.0); MEAN CORPUSCULAR HGB 26.1 pg (27.0-31.0); MEAN CORPUSCULAR HGB CONC 28.8 g/dl (33.0-37.0); MEAN PLATELET VOLUME 10.2 fl (9.6-12.3); MONO # 0.7 10*3/uL (0.1-1.0); MONO % 5.7 % (3.0-9.0); NEUT # 9.3 10*3/uL (2.3-7.9); NEUT % 75.9 % (47.0-73.0); NUCLEATED RED BLOOD CELL 0.1 10*3/uL (0.0-0.0); NUCLEATED RED BLOOD CELL 0.4 % (0.0-0.0); PLATELET COUNT AUTOMATED 317 10*3/uL (130-400); RED BLOOD COUNT 3.45 10*6/uL (4.10-5.10); RED CELL DISTRI WIDTH 17.7 % (0-14.5); WHITE BLOOD COUNT 12.2 10*3/uL (4.8-10.8)
[2025-04-23 06:45] LABS: ALKALINE PHOSPHATASE 100 U/L (46-116); BUN 20 mg/dl (9-23); CHLORIDE 96 mmol/L (98-107); CHOLESTEROL 150 mg/dL (<200); LDL CHOLESTEROL 42 mg/dL (9-159); POTASSIUM 3.9 mmol/L (3.4-5.1); SGPT/ALT 15 U/L (5-49); TOTAL PROTEIN 7.3 gm/dL (6.0-8.0); TRIGLYCERIDES 280 mg/dl (<150)
[2025-04-23 08:00] VITALS: BP 130/72
[2025-04-23] MEDS ORDERED: DEXTROSE 50% 25 GM/50 ML VIAL IV PRN (08:05)
[2025-04-23] MEDS ORDERED: predniSONE 10 MG TAB PO SCH (10:00)
[2025-04-23] MEDS ORDERED: BUMETANIDE 2 MG IV SCH (10:00)
[2025-04-23] MEDS ORDERED: Cetirizine Hydrochloride 10 MG TAB PO SCH (10:00)
[2025-04-23] MEDS ORDERED: Rosuvastatin Calcium 10 MG TABLET PO SCH (10:00)
[2025-04-23] MEDS ORDERED: Fluticasone Propionate/Salmeterol 250/50 diskus INH SCH (10:00)
[2025-04-23] MEDS ORDERED: BUMETANIDE 1 MG/4 ML VIAL IV SCH ×4 (10:00→16:30)
[2025-04-23] MEDS ORDERED: PARoxetine Hydrochloride 20 MG TAB PO SCH (10:00)
[2025-04-23] MEDS ORDERED: Cholecalciferol 2,000 UNIT TABLET (50 MCG) PO SCH (10:00)
[2025-04-23] MEDS ORDERED: BUMETANIDE 2.5 MG/10 ML VIAL IM SCH (10:00)
[2025-04-23 10:48] LABS: BILIRUBIN Negative (Negative); BLOOD Negative (Negative); CLARITY Cloudy (Clear); COLOR Yellow (Yellow); GLUCOSE 3+ (Negative); KETONE Negative (Negative); LEUKO ESTERASE Negative (Negative); NITRITE Negative (Negative); SPECIFIC GRAVITY 1.025 (1.001-1.030)
[2025-04-23 11:03] LABS: RBC 0-2 rbc/hpf (0-2); WBC 0-2 wbc/hpf (0-5)
[2025-04-23 11:04] LABS: MUCOUS TRACE
[2025-04-23] MEDS ORDERED: INSULIN LISPRO 1 UNIT/0.01 ML SQ SCH (11:30)
[2025-04-23 12:00] VITALS: BP 152/64
[2025-04-23 16:00] VITALS: BP 116/77
[2025-04-23] MEDS ORDERED: Tacrolimus 1 MG CAP PO SCH (18:00)
[2025-04-23 20:00] VITALS: BP 118/43
[2025-04-24] VITALS: BP 132/40
[2025-04-24 08:00] VITALS: BP 130/60
[2025-04-24 12:00] VITALS: BP 140/50
[2025-04-24 16:00] VITALS: BP 162/61
[2025-04-24 20:00] VITALS: BP 131/51
[2025-04-24 23:51] VITALS: BP 136/55
[2025-04-25 04:54] LABS: POTASSIUM 3.6 mmol/L (3.4-5.1)
[2025-04-25 06:10] LABS: BASO # 0.1 10*3/uL (0.0-0.1); BASO % 0.4 % (0.0-1.0); EOS # 0.2 10*3/uL (0.0-0.4); HEMATOCRIT 29.6 % (37.0-47.0); MEAN CORPUSCULAR HGB 26.7 pg (27.0-31.0); MEAN CORPUSCULAR HGB CONC 29.7 g/dl (33.0-37.0); MEAN PLATELET VOLUME 10.1 fl (9.6-12.3); MONO # 0.7 10*3/uL (0.1-1.0); MONO % 5.9 % (3.0-9.0); NEUT # 8.3 10*3/uL (2.3-7.9); NEUT % 73.6 % (47.0-73.0); NUCLEATED RED BLOOD CELL 0.4 % (0.0-0.0); PLATELET COUNT AUTOMATED 303 10*3/uL (130-400); RED BLOOD COUNT 3.29 10*6/uL (4.10-5.10); RED CELL DISTRI WIDTH 18.2 % (0-14.5); WHITE BLOOD COUNT 11.2 10*3/uL (4.8-10.8)
[2025-04-25 08:00] VITALS: BP 121/56
[2025-04-25 12:00] VITALS: BP 135/54
[2025-04-25 16:00] VITALS: BP 121/43
[2025-04-25] MEDS ORDERED: CEPHALEXIN 500 MG CAP PO SCH (18:00)
[2025-04-25 20:00] VITALS: BP 127/50
[2025-04-25] MEDS ORDERED: diphenhydrAMINE hydrochloride 25 MG CAP PO ONE (23:55)
[2025-04-26] VITALS (7 sets, daily range): BP systolic 116–144; BP diastolic 43–83
[2025-04-26 05:02] LABS: POTASSIUM 3.7 mmol/L (3.4-5.1)
[2025-04-26 06:08] LABS: BASO % 0.2 % (0.0-1.0); EOS # 0.2 10*3/uL (0.0-0.4); HEMATOCRIT 29.1 % (37.0-47.0); MEAN CELL VOLUME 90.9 fl (81.0-99.0); MEAN CORPUSCULAR HGB 26.3 pg (27.0-31.0); MEAN CORPUSCULAR HGB CONC 28.9 g/dl (33.0-37.0); MEAN PLATELET VOLUME 10.4 fl (9.6-12.3); MONO # 0.6 10*3/uL (0.1-1.0); MONO % 5.2 % (3.0-9.0); NEUT # 9.1 10*3/uL (2.3-7.9); NEUT % 75.4 % (47.0-73.0); NUCLEATED RED BLOOD CELL 0.2 % (0.0-0.0); PLATELET COUNT AUTOMATED 304 10*3/uL (130-400); WHITE BLOOD COUNT 12.1 10*3/uL (4.8-10.8)
[2025-04-26] MEDS ORDERED: diphenhydrAMINE hydrochloride 25 MG CAP PO PRN (08:35)
[2025-04-27] VITALS: BP 133/53
[2025-04-27 06:29] LABS: POTASSIUM 3.5 mmol/L (3.4-5.1)
[2025-04-27 06:31] LABS: BASO % 0.3 % (0.0-1.0); EOS # 0.2 10*3/uL (0.0-0.4); HEMATOCRIT 27.6 % (37.0-47.0); MEAN CELL VOLUME 88.7 fl (81.0-99.0); MEAN CORPUSCULAR HGB CONC 29.3 g/dl (33.0-37.0); MEAN PLATELET VOLUME 10.1 fl (9.6-12.3); MONO # 0.5 10*3/uL (0.1-1.0); NEUT # 7.5 10*3/uL (2.3-7.9); NEUT % 74.8 % (47.0-73.0); NUCLEATED RED BLOOD CELL 0.2 % (0.0-0.0); PLATELET COUNT AUTOMATED 257 10*3/uL (130-400); RED BLOOD COUNT 3.11 10*6/uL (4.10-5.10); RED CELL DISTRI WIDTH 18.1 % (0-14.5)
[2025-04-27 08:00] VITALS: BP 133/41
[2025-04-27] MEDS ORDERED: ACETAMINOPHEN 325 MG TAB PO PRN (10:35)
[2025-04-27 11:59] VITALS: BP 121/51
[2025-04-27 16:00] VITALS: BP 126/49
[2025-04-27 16:13] LABS: BILIRUBIN Negative (Negative); BLOOD Negative (Negative); CLARITY Cloudy (Clear); COLOR Yellow (Yellow); GLUCOSE Negative (Negative); KETONE Trace (Negative); LEUKO ESTERASE Negative (Negative); NITRITE Negative (Negative); SPECIFIC GRAVITY 1.025 (1.001-1.030)
[2025-04-27] MEDS ORDERED: BUMETANIDE 1 MG TAB PO SCH (16:30)
[2025-04-27 16:45] LABS: BACTERIA 1+; EPITHELIAL CELLS 21-30; RBC 0-2 rbc/hpf (0-2); WBC 0-2 wbc/hpf (0-5)
[2025-04-27 20:00] VITALS: BP 126/64
[2025-04-28] VITALS: BP 138/55
[2025-04-28 06:18] LABS: BASO % 0.3 % (0.0-1.0); EOS # 0.3 10*3/uL (0.0-0.4); EOS % 2.3 % (1.0-4.0); HEMATOCRIT 27.8 % (37.0-47.0); MEAN CELL VOLUME 89.7 fl (81.0-99.0); MEAN CORPUSCULAR HGB 26.1 pg (27.0-31.0); MEAN CORPUSCULAR HGB CONC 29.1 g/dl (33.0-37.0); MEAN PLATELET VOLUME 10.2 fl (9.6-12.3); MONO # 0.5 10*3/uL (0.1-1.0); MONO % 4.3 % (3.0-9.0); NEUT # 8.3 10*3/uL (2.3-7.9); NEUT % 74.6 % (47.0-73.0); PLATELET COUNT AUTOMATED 273 10*3/uL (130-400); WHITE BLOOD COUNT 11.1 10*3/uL (4.8-10.8)
[2025-04-28 06:43] LABS: POTASSIUM 3.4 mmol/L (3.4-5.1)
[2025-04-28 08:00] VITALS: BP 136/54
[2025-04-28 12:00] VITALS: BP 140/57
[2025-04-28] MEDS ORDERED: BUMETANIDE1 MG PO ×2 (14:52→14:54)
[2025-04-28] MEDS ORDERED: NOVAPLUS TACROLI1 MG PO ×2 (14:52→14:55)
[2025-04-28] MEDS ORDERED: PREDNISONE10 MG PO (14:52)
[2025-04-28] MEDS ORDERED: BENADRYL ALLERG25 M5 PO (14:52)
[2025-04-28 16:00] VITALS: BP 144/50
== END 2025-04-28 16:57 | disposition home or self-care (01) | DRG 194 ==
LOC: ED 10:52 → 4E 12:25 → EDHOLD 12:25 → 4E 16:13
PROVIDERS: Family Medicine; Internal Medicine; Internal Medicine Nephrology; Physician Assistant Medical; Registered Nurse; Student in an Organized Health Care Education/Training Program; ADMIT Internal Medicine; ATTEND Internal Medicine
DX: I13.0 Hypertensive heart and chronic kidney disease with heart failure and stage 1 through stage 4 chronic kidney disease, or unspecified chronic kidney disease (principal); I50.33 Acute on chronic diastolic (congestive) heart failure; N18.31 Chronic kidney disease, stage 3a; R65.10 Systemic inflammatory response syndrome (SIRS) of non-infectious origin without acute organ dysfunction; N05.0 Unspecified nephritic syndrome with minor glomerular abnormality; I80.8 Phlebitis and thrombophlebitis of other sites; E11.22 Type 2 diabetes mellitus with diabetic chronic kidney disease; N18.9 Chronic kidney disease, unspecified; Z96.41 Presence of insulin pump (external) (internal); F32.A Depression, unspecified; D64.9 Anemia, unspecified; E78.2 Mixed hyperlipidemia; D72.825 Bandemia; E11.65 Type 2 diabetes mellitus with hyperglycemia; Z68.42 Body mass index [BMI] 45.0-49.9, adult; Z88.8 Allergy status to other drugs, medicaments and biological substances; Z98.51 Tubal ligation status; Z86.39 Personal history of other endocrine, nutritional and metabolic disease; Z87.891 Personal history of nicotine dependence; Z79.4 Long term (current) use of insulin

== ENCOUNTER → 2025-05-07 | Outpatient (CLI) | payer OTHER ==
[~2025-05-07] MED LIST changes: +ADV 100/50 DEVI; +AIRSUPRA 90-810.7 GM INH; +BENADRYL ALLERG25 M5 PO; +NOVAPLUS TACROLI1 MG PO; +PREDNISONE10 M1 PO; +ROSUVASTATIN CA20 MG PO
[2025-05-07 11:36] LABS: BASO % 0.2 % (0.0-1.0); EOS # 0.3 10*3/uL (0.0-0.4); EOS % 2.2 % (1.0-4.0); HEMATOCRIT 30.8 % (37.0-47.0); MEAN CELL VOLUME 88.5 fl (81.0-99.0); MEAN CORPUSCULAR HGB 25.6 pg (27.0-31.0); MEAN CORPUSCULAR HGB CONC 28.9 g/dl (33.0-37.0); MEAN PLATELET VOLUME 9.5 fl (9.6-12.3); MONO # 0.7 10*3/uL (0.1-1.0); MONO % 5.4 % (3.0-9.0); NEUT # 9.6 10*3/uL (2.3-7.9); NEUT % 76.9 % (47.0-73.0); PLATELET COUNT AUTOMATED 337 10*3/uL (130-400); RED BLOOD COUNT 3.48 10*6/uL (4.10-5.10); RED CELL DISTRI WIDTH 18.1 % (0-14.5); WHITE BLOOD COUNT 12.5 10*3/uL (4.8-10.8)
[2025-05-07 11:36] LABS: BILIRUBIN Negative (Negative); BLOOD Trace-Lysed (Negative); CLARITY Cloudy (Clear); COLOR Yellow (Yellow); GLUCOSE Negative (Negative); KETONE Negative (Negative); LEUKO ESTERASE Negative (Negative); NITRITE Negative (Negative); PH 5.5 (4.5-8.0); SPECIFIC GRAVITY 1.015 (1.001-1.030)
[2025-05-07 11:50] LABS: BACTERIA 3+; MUCOUS 1+; RBC 0-2 rbc/hpf (0-2)
[2025-05-07 12:20] LABS: POTASSIUM 3.3 mmol/L (3.4-5.1); TOTAL PROTEIN 7.1 gm/dL (6.0-8.0)
== END | disposition home or self-care (01) ==
LOC: LAB 11:15
PROVIDERS: ATTEND Nurse Practitioner Family
DX: E11.9 Type 2 diabetes mellitus without complications (principal); N17.8 Other acute kidney failure; R80.9 Proteinuria, unspecified

== ENCOUNTER → 2025-05-13 | Outpatient (CLI) | payer OTHER ==
[2025-05-13 11:37] LABS: BASO % 0.3 % (0.0-1.0); EOS # 0.3 10*3/uL (0.0-0.4); EOS % 2.1 % (1.0-4.0); HEMATOCRIT 29.7 % (37.0-47.0); MEAN CELL VOLUME 87.9 fl (81.0-99.0); MEAN CORPUSCULAR HGB 25.4 pg (27.0-31.0); MEAN PLATELET VOLUME 9.6 fl (9.6-12.3); MONO # 0.7 10*3/uL (0.1-1.0); MONO % 5.8 % (3.0-9.0); NEUT # 9.2 10*3/uL (2.3-7.9); PLATELET COUNT AUTOMATED 353 10*3/uL (130-400); RED BLOOD COUNT 3.38 10*6/uL (4.10-5.10); RED CELL DISTRI WIDTH 17.9 % (0-14.5); WHITE BLOOD COUNT 11.9 10*3/uL (4.8-10.8)
[2025-05-13 11:38] LABS: BILIRUBIN Negative (Negative); BLOOD Negative (Negative); CLARITY Clear (Clear); COLOR Yellow (Yellow); GLUCOSE Negative (Negative); KETONE Negative (Negative); LEUKO ESTERASE Negative (Negative); NITRITE Negative (Negative); PH 6.5 (4.5-8.0); SPECIFIC GRAVITY 1.015 (1.001-1.030)
[2025-05-13 11:53] LABS: EPITHELIAL CELLS TNTC
[2025-05-13 12:06] LABS: FREE T4 0.96 ng/dl (0.89-1.76); POTASSIUM 3.7 mmol/L (3.4-5.1); TOTAL PROTEIN 6.9 gm/dL (6.0-8.0)
== END | disposition home or self-care (01) ==
LOC: LAB 10:55
PROVIDERS: Student in an Organized Health Care Education/Training Program; ATTEND Nurse Practitioner Family
DX: E11.65 Type 2 diabetes mellitus with hyperglycemia (principal); E11.9 Type 2 diabetes mellitus without complications; R80.9 Proteinuria, unspecified; N17.8 Other acute kidney failure

== ENCOUNTER → 2025-05-27 | Outpatient (CLI) | payer OTHER ==
[2025-05-27 11:49] LABS: BASO # 0.0 10*3/uL (0.0-0.1); BASO % 0.3 % (0.0-1.0); EOS # 0.3 10*3/uL (0.0-0.4); EOS % 2.5 % (1.0-4.0); MEAN CELL VOLUME 84.8 fl (81.0-99.0); MEAN CORPUSCULAR HGB 24.3 pg (27.0-31.0); MEAN PLATELET VOLUME 9.7 fl (9.6-12.3); MONO # 0.7 10*3/uL (0.1-1.0); MONO % 6.6 % (3.0-9.0); NEUT # 7.9 10*3/uL (2.3-7.9); NEUT % 72.2 % (47.0-73.0); NUCLEATED RED BLOOD CELL 0.0 % (0.0-0.0); NUCLEATED RED BLOOD CELL 0.0 10*3/uL (0.0-0.0); PLATELET COUNT AUTOMATED 276 10*3/uL (130-400); RED CELL DISTRI WIDTH 17.9 % (0-14.5)
[2025-05-27 11:50] LABS: BILIRUBIN Negative (Negative); BLOOD Negative (Negative); CLARITY Cloudy (Clear); COLOR Yellow (Yellow); KETONE Trace (Negative); LEUKO ESTERASE Trace (Negative); NITRITE Negative (Negative); PH 5.5 (4.5-8.0); SPECIFIC GRAVITY 1.020 (1.001-1.030); UROBILINOGEN 1.0 E.U./dl (0.0-1.0)
[2025-05-27 12:07] LABS: EPITHELIAL CELLS TNTC; MUCOUS 1+
[2025-05-27 12:22] LABS: BUN 41.0 mg/dl (9-23); SGPT/ALT 12.0 U/L (5-49)
[2025-05-27 12:24] LABS: FREE T4 1.0 ng/dl (0.89-1.76); LDL CHOLESTEROL 55.0 mg/dL (9-159)
== END | disposition home or self-care (01) ==
LOC: LAB 11:16
PROVIDERS: Internal Medicine Endocrinology, Diabetes & Metabolism; ATTEND Nurse Practitioner Family
DX: E11.9 Type 2 diabetes mellitus without complications (principal); N17.8 Other acute kidney failure; R80.9 Proteinuria, unspecified

== ENCOUNTER → 2025-06-16 | Outpatient (CLI) | payer OTHER ==
[2025-06-16 11:32] LABS: BASO # 0.0 10*3/uL (0.0-0.1); BASO % 0.2 % (0.0-1.0); EOS # 0.2 10*3/uL (0.0-0.4); EOS % 1.1 % (1.0-4.0); MEAN CELL VOLUME 82.9 fl (81.0-99.0); MEAN CORPUSCULAR HGB 23.8 pg (27.0-31.0); MEAN PLATELET VOLUME 9.4 fl (9.6-12.3); MONO # 0.6 10*3/uL (0.1-1.0); MONO % 3.9 % (3.0-9.0); NEUT # 12.2 10*3/uL (2.3-7.9); NEUT % 86.5 % (47.0-73.0); NUCLEATED RED BLOOD CELL 0.0 % (0.0-0.0); NUCLEATED RED BLOOD CELL 0.0 10*3/uL (0.0-0.0); PLATELET COUNT AUTOMATED 270 10*3/uL (130-400); RED CELL DISTRI WIDTH 18.4 % (0-14.5)
[2025-06-16 11:35] LABS: BILIRUBIN Negative (Negative); BLOOD Negative (Negative); CLARITY Clear (Clear); COLOR Yellow (Yellow); KETONE Negative (Negative); LEUKO ESTERASE Negative (Negative); NITRITE Negative (Negative); PH 7.0 (4.5-8.0); SPECIFIC GRAVITY <= 1.005 (1.001-1.030); UROBILINOGEN 0.2 E.U./dl (0.0-1.0)
[2025-06-16 12:02] LABS: RBC 0-2 rbc/hpf (0-2); WBC 0-2 wbc/hpf (0-5)
[2025-06-16 12:08] LABS: BUN 38.0 mg/dl (9-23)
== END | disposition home or self-care (01) ==
LOC: LAB 10:58
PROVIDERS: ATTEND Nurse Practitioner Family
DX: N17.8 Other acute kidney failure (principal); D64.9 Anemia, unspecified; R80.9 Proteinuria, unspecified

== ENCOUNTER → 2025-07-07 | Outpatient (CLI) | payer OTHER ==
[2025-07-07 09:57] LABS: BASO # 0.0 10*3/uL (0.0-0.1); BASO % 0.2 % (0.0-1.0); EOS # 0.2 10*3/uL (0.0-0.4); EOS % 1.9 % (1.0-4.0); MEAN CELL VOLUME 84.4 fl (81.0-99.0); MEAN CORPUSCULAR HGB 23.9 pg (27.0-31.0); MEAN PLATELET VOLUME 9.8 fl (9.6-12.3); MONO # 0.6 10*3/uL (0.1-1.0); MONO % 5.3 % (3.0-9.0); NEUT # 8.0 10*3/uL (2.3-7.9); NEUT % 74.2 % (47.0-73.0); NUCLEATED RED BLOOD CELL 0.0 % (0.0-0.0); NUCLEATED RED BLOOD CELL 0.0 10*3/uL (0.0-0.0); PLATELET COUNT AUTOMATED 247 10*3/uL (130-400); RED CELL DISTRI WIDTH 19.0 % (0-14.5)
[2025-07-07 10:01] LABS: BILIRUBIN Negative (Negative); BLOOD Negative (Negative); CLARITY Cloudy (Clear); COLOR Yellow (Yellow); KETONE Trace (Negative); LEUKO ESTERASE Negative (Negative); NITRITE Negative (Negative); PH 5.5 (4.5-8.0); SPECIFIC GRAVITY 1.020 (1.001-1.030); UROBILINOGEN 1.0 E.U./dl (0.0-1.0)
[2025-07-07 10:22] LABS: BUN 47.0 mg/dl (9-23)
[2025-07-07 10:23] LABS: BACTERIA 3+; EPITHELIAL CELLS 21-30; MUCOUS TRACE
== END | disposition home or self-care (01) ==
LOC: LAB 09:30
PROVIDERS: ATTEND Nurse Practitioner Family
DX: N17.8 Other acute kidney failure (principal); R80.9 Proteinuria, unspecified; D64.9 Anemia, unspecified

== ENCOUNTER → 2025-07-28 | Outpatient (CLI) | payer OTHER ==
[2025-07-28 11:33] LABS: BASO # 0.0 10*3/uL (0.0-0.1); BASO % 0.3 % (0.0-1.0); EOS # 0.2 10*3/uL (0.0-0.4); EOS % 1.6 % (1.0-4.0); MEAN CELL VOLUME 85.5 fl (81.0-99.0); MEAN CORPUSCULAR HGB 24.2 pg (27.0-31.0); MEAN PLATELET VOLUME 10.1 fl (9.6-12.3); MONO # 0.6 10*3/uL (0.1-1.0); MONO % 5.8 % (3.0-9.0); NEUT # 7.7 10*3/uL (2.3-7.9); NEUT % 76.9 % (47.0-73.0); NUCLEATED RED BLOOD CELL 0.0 % (0.0-0.0); NUCLEATED RED BLOOD CELL 0.0 10*3/uL (0.0-0.0); PLATELET COUNT AUTOMATED 240 10*3/uL (130-400); RED CELL DISTRI WIDTH 18.8 % (0-14.5)
[2025-07-28 11:39] LABS: BILIRUBIN Negative (Negative); BLOOD Negative (Negative); CLARITY Cloudy (Clear); COLOR Yellow (Yellow); KETONE Trace (Negative); LEUKO ESTERASE Negative (Negative); NITRITE Negative (Negative); PH 6.0 (4.5-8.0); SPECIFIC GRAVITY 1.020 (1.001-1.030); UROBILINOGEN 1.0 E.U./dl (0.0-1.0)
[2025-07-28 11:59] LABS: BUN 50.0 mg/dl (9-23)
[2025-07-28 12:32] LABS: BACTERIA 3+; RBC 0-2 rbc/hpf (0-2); WBC 0-2 wbc/hpf (0-5)
== END | disposition home or self-care (01) ==
LOC: LAB 10:52
PROVIDERS: Nurse Practitioner Family; ATTEND Nurse Practitioner Primary Care
DX: N17.8 Other acute kidney failure (principal); R80.9 Proteinuria, unspecified

== ENCOUNTER → 2025-08-03 | Outpatient (CLI) | payer OTHER | END | disposition home or self-care (01) | LOC: RAD 11:28 | PROVIDERS: ATTEND Nurse Practitioner Family | DX: R06.02 Shortness of breath (principal) ==

== ENCOUNTER 2025-09-06 15:41 | Inpatient (IN) | payer OTHER ==
[~2025-09-06] VITALS: Ht 167.6 cm; Wt 129.3 kg
[2025-09-06 16:00] VITALS: BP 147/76
[2025-09-06 16:27] LABS: BASO # 0.0 10*3/uL (0.0-0.1); BASO % 0.4 % (0.0-1.0); EOS # 0.2 10*3/uL (0.0-0.4); EOS % 2.1 % (1.0-4.0); MEAN CELL VOLUME 84.6 fl (81.0-99.0); MEAN CORPUSCULAR HGB 24.5 pg (27.0-31.0); MEAN PLATELET VOLUME 10.1 fl (9.6-12.3); MONO # 0.7 10*3/uL (0.1-1.0); MONO % 5.9 % (3.0-9.0); NEUT # 9.1 10*3/uL (2.3-7.9); NEUT % 81.3 % (47.0-73.0); NUCLEATED RED BLOOD CELL 0.0 % (0.0-0.0); NUCLEATED RED BLOOD CELL 0.0 10*3/uL (0.0-0.0); PLATELET COUNT AUTOMATED 247 10*3/uL (130-400); RED CELL DISTRI WIDTH 18.2 % (0-14.5)
[2025-09-06 16:51] LABS: BUN 55.0 mg/dl (9-23); CPK 47.0 U/L (34-171)
[2025-09-06] MEDS ORDERED: Albuterol Sulf/Ipratropium 3 ML VIAL NEB ONE (19:05)
[2025-09-06] MEDS ORDERED: ACETAMINOPHEN 325 MG TAB PO PRN (19:40)
[2025-09-06] MEDS ORDERED: Ondansetron Hydrochloride 4 MG/2 ML VIAL IV PRN (19:40)
[2025-09-06] MEDS ORDERED: BISACODYL 10 MG SUPP R PRN (19:40)
[2025-09-06] MEDS ORDERED: BISACODYL 5 MG TAB PO PRN (19:40)
[2025-09-06] MEDS ORDERED: ACETAMINOPHEN 650 MG SUPP R PRN (19:40)
[2025-09-06 19:45] VITALS: BP 135/65
[2025-09-06] MEDS ORDERED: DEXTROSE 50% 25 GM/50 ML VIAL IV PRN (19:50)
[2025-09-06] MEDS ORDERED: INSULIN PUMP (PT'S PUMP FROM HOME) SC SCH (20:20)
[2025-09-06] MEDS ORDERED: Albuterol Sulf/Ipratropium 3 ML VIAL NEB PRN (20:40)
[2025-09-06] MEDS ORDERED: AZITHROMYCIN 250 ML IV SCH (21:00)
[2025-09-06 22:00] VITALS: BP 95/81
[2025-09-06] MEDS ORDERED: INSULIN LISPRO 1 UNIT/0.01 ML SQ SCH (22:00)
[2025-09-07] VITALS: BP 142/71
[2025-09-07 06:06] LABS: MEAN CELL VOLUME 83.0 fl (81.0-99.0); MEAN CORPUSCULAR HGB 23.6 pg (27.0-31.0); MEAN PLATELET VOLUME 11.2 fl (9.6-12.3); NUCLEATED RED BLOOD CELL 0.0 % (0.0-0.0); NUCLEATED RED BLOOD CELL 0.0 10*3/uL (0.0-0.0); PLATELET COUNT AUTOMATED 248 10*3/uL (130-400); RED CELL DISTRI WIDTH 17.7 % (0-14.5)
[2025-09-07 06:09] LABS: BUN 57.0 mg/dl (9-23); SGPT/ALT 9.0 U/L (5-49)
[2025-09-07 06:59] LABS: MANUAL DIFF REFLEX YES
[2025-09-07 07:02] LABS: PLATELET SUFFICIENCY NORMAL (NORMAL)
[2025-09-07 08:00] VITALS: BP 139/54
[2025-09-07] MEDS ORDERED: [UNRECOGNIZED DRUG - OTHER] PO (08:00)
[2025-09-07] MEDS ORDERED: PREDNISONE5 MG PO (08:50)
[2025-09-07] MEDS ORDERED: VENTOLIN 02.5 MG/3 M INH (08:50)
[2025-09-07] MEDS ORDERED: BUMETANIDE2 MG PO (08:55)
[2025-09-07] MEDS ORDERED: FEROSUL325 M1 PO (08:59)
[2025-09-07] MEDS ORDERED: INSULIN AS100 UNIT/2 SQ (09:01)
[2025-09-07] MEDS ORDERED: ROPINIROLE HYD0.5 MG PO (09:06)
[2025-09-07] MEDS ORDERED: DOCUSATE SOD100 MG PO (09:38)
[2025-09-07] MEDS ORDERED: FERROUS SULFATE 325 MG TAB PO SCH (11:00)
[2025-09-07 12:00] VITALS: BP 146/64
[2025-09-07 16:00] VITALS: BP 136/60
[2025-09-07] MEDS ORDERED: BUMETANIDE 1 MG TAB PO SCH (18:00)
[2025-09-07 20:00] VITALS: BP 98/69
[2025-09-07] MEDS ORDERED: Miconazole Nitrate 2% 15 GM TUBE T SCH (22:00)
[2025-09-07] MEDS ORDERED: Insulin Lispro, Recombinant 1 UNIT/0.01 ML UN SC SCH (22:00)
[2025-09-08] VITALS: BP 131/69
[2025-09-08 06:14] LABS: BUN 66.0 mg/dl (9-23)
[2025-09-08 06:33] LABS: BASO # 0.0 10*3/uL (0.0-0.1); BASO % 0.1 % (0.0-1.0); EOS # 0.0 10*3/uL (0.0-0.4); EOS % 0.0 % (1.0-4.0); MEAN CELL VOLUME 82.7 fl (81.0-99.0); MEAN CORPUSCULAR HGB 24.3 pg (27.0-31.0); MEAN PLATELET VOLUME 10.8 fl (9.6-12.3); MONO # 1.1 10*3/uL (0.1-1.0); MONO % 7.2 % (3.0-9.0); NEUT # 12.6 10*3/uL (2.3-7.9); NEUT % 85.5 % (47.0-73.0); NUCLEATED RED BLOOD CELL 0.0 % (0.0-0.0); NUCLEATED RED BLOOD CELL 0.0 10*3/uL (0.0-0.0); PLATELET COUNT AUTOMATED 255 10*3/uL (130-400); RED CELL DISTRI WIDTH 17.6 % (0-14.5)
[2025-09-08 08:00] VITALS: BP 132/69
[2025-09-08] MEDS ORDERED: MULTIVITAMIN 1 TAB TAB PO SCH (10:00)
[2025-09-08] MEDS ORDERED: Cholecalciferol 2,000 UNIT TABLET (50 MCG) PO SCH (10:00)
[2025-09-08] MEDS ORDERED: CYANOCOBALAMIN 500 MCG TAB PO SCH (10:00)
[2025-09-08] MEDS ORDERED: BUMETANIDE 1 MG TAB PO SCH (10:00)
[2025-09-08] MEDS ORDERED: ATORVASTATIN CALCIUM 40 MG TABLET PO SCH (10:00)
[2025-09-08] MEDS ORDERED: THYROID 30 MG TAB PO SCH (10:00)
[2025-09-08 12:00] VITALS: BP 133/78
[2025-09-08] MEDS ORDERED: MED. FROM HOME 1 EACH EA SC SCH (15:40)
== END 2025-09-08 16:35 | disposition home or self-care (01) | DRG 145 ==
LOC: ED 15:41 → 5E 19:18 → EDHOLD 19:18 → 5E 20:43
PROVIDERS: Emergency Medicine; Student in an Organized Health Care Education/Training Program; ADMIT Internal Medicine; ATTEND Internal Medicine
DX: J20.9 Acute bronchitis, unspecified (principal); J44.1 Chronic obstructive pulmonary disease with (acute) exacerbation; J96.00 Acute respiratory failure, unspecified whether with hypoxia or hypercapnia; J44.0 Chronic obstructive pulmonary disease with (acute) lower respiratory infection; D64.9 Anemia, unspecified; E66.01 Morbid (severe) obesity due to excess calories; I50.32 Chronic diastolic (congestive) heart failure; N18.4 Chronic kidney disease, stage 4 (severe); F32.A Depression, unspecified; I13.0 Hypertensive heart and chronic kidney disease with heart failure and stage 1 through stage 4 chronic kidney disease, or unspecified chronic kidney disease; G25.81 Restless legs syndrome; J45.909 Unspecified asthma, uncomplicated; E11.22 Type 2 diabetes mellitus with diabetic chronic kidney disease; E11.65 Type 2 diabetes mellitus with hyperglycemia; N05.0 Unspecified nephritic syndrome with minor glomerular abnormality; E78.00 Pure hypercholesterolemia, unspecified; G47.33 Obstructive sleep apnea (adult) (pediatric); Z68.41 Body mass index [BMI] 40.0-44.9, adult; Z88.8 Allergy status to other drugs, medicaments and biological substances; Z98.51 Tubal ligation status; Z83.3 Family history of diabetes mellitus; Z79.4 Long term (current) use of insulin

== ENCOUNTER → 2025-09-29 | Outpatient (CLI) | payer OTHER ==
[~2025-09-29] MED LIST changes: +DOCUSATE SOD100 MG PO; +FEROSUL325 M1 PO; +INSULIN AS100 UNIT/2 SQ; +ROPINIROLE HYD0.5 MG PO; +VENTOLIN 02.5 MG/3 M INH; +[UNRECOGNIZED DRUG - OTHER] PO
[2025-09-29 12:12] LABS: BASO # 0.0 10*3/uL (0.0-0.1); BASO % 0.3 % (0.0-1.0); EOS # 0.2 10*3/uL (0.0-0.4); EOS % 2.6 % (1.0-4.0); MEAN CELL VOLUME 82.4 fl (81.0-99.0); MEAN CORPUSCULAR HGB 24.6 pg (27.0-31.0); MEAN PLATELET VOLUME 10.2 fl (9.6-12.3); MONO # 0.6 10*3/uL (0.1-1.0); MONO % 6.3 % (3.0-9.0); NEUT # 7.1 10*3/uL (2.3-7.9); NEUT % 75.5 % (47.0-73.0); NUCLEATED RED BLOOD CELL 0.0 % (0.0-0.0); NUCLEATED RED BLOOD CELL 0.0 10*3/uL (0.0-0.0); PLATELET COUNT AUTOMATED 225 10*3/uL (130-400); RED CELL DISTRI WIDTH 17.4 % (0-14.5)
[2025-09-29 12:13] LABS: BILIRUBIN Negative (Negative); BLOOD Negative (Negative); CLARITY Clear (Clear); COLOR Yellow (Yellow); KETONE Negative (Negative); LEUKO ESTERASE Negative (Negative); NITRITE Negative (Negative); PH 5.5 (4.5-8.0); SPECIFIC GRAVITY <= 1.005 (1.001-1.030); UROBILINOGEN 0.2 E.U./dl (0.0-1.0)
[2025-09-29 12:39] LABS: BUN 51.0 mg/dl (9-23)
[2025-09-29 12:55] LABS: BACTERIA 1+
== END | disposition home or self-care (01) ==
LOC: LAB 11:36
PROVIDERS: ATTEND Nurse Practitioner Family
DX: N17.8 Other acute kidney failure (principal); R80.9 Proteinuria, unspecified

== ENCOUNTER → 2025-10-29 | Outpatient (CLI) | payer OTHER ==
[2025-10-29 12:10] LABS: BASO # 0.0 10*3/uL (0.0-0.1); BASO % 0.3 % (0.0-1.0); EOS # 0.2 10*3/uL (0.0-0.4); EOS % 1.9 % (1.0-4.0); MEAN CELL VOLUME 85.2 fl (81.0-99.0); MEAN CORPUSCULAR HGB 25.9 pg (27.0-31.0); MEAN PLATELET VOLUME 10.7 fl (9.6-12.3); MONO # 0.6 10*3/uL (0.1-1.0); MONO % 5.4 % (3.0-9.0); NEUT # 7.7 10*3/uL (2.3-7.9); NEUT % 74.8 % (47.0-73.0); NUCLEATED RED BLOOD CELL 0.0 % (0.0-0.0); NUCLEATED RED BLOOD CELL 0.0 10*3/uL (0.0-0.0); PLATELET COUNT AUTOMATED 215 10*3/uL (130-400); RED CELL DISTRI WIDTH 17.3 % (0-14.5)
[2025-10-29 12:13] LABS: BILIRUBIN Negative (Negative); BLOOD Negative (Negative); CLARITY Cloudy (Clear); COLOR Yellow (Yellow); KETONE Negative (Negative); LEUKO ESTERASE Negative (Negative); NITRITE Negative (Negative); PH 5.0 (4.5-8.0); SPECIFIC GRAVITY 1.015 (1.001-1.030); UROBILINOGEN 1.0 E.U./dl (0.0-1.0)
[2025-10-29 12:21] LABS: BACTERIA 2+; EPITHELIAL CELLS 21-30; MUCOUS TRACE
[2025-10-29 12:43] LABS: BUN 62.0 mg/dl (9-23)
== END | disposition home or self-care (01) ==
LOC: LAB 11:19
PROVIDERS: ATTEND Nurse Practitioner Family
DX: R80.9 Proteinuria, unspecified (principal); N17.8 Other acute kidney failure; D64.9 Anemia, unspecified

== ENCOUNTER → 2025-11-12 | Outpatient (CLI) | payer OTHER ==
[2025-11-12 11:31] LABS: BASO # 0.0 10*3/uL (0.0-0.1); BASO % 0.3 % (0.0-1.0); EOS # 0.2 10*3/uL (0.0-0.4); EOS % 2.1 % (1.0-4.0); MEAN CELL VOLUME 84.6 fl (81.0-99.0); MEAN CORPUSCULAR HGB 25.7 pg (27.0-31.0); MEAN PLATELET VOLUME 9.9 fl (9.6-12.3); MONO # 0.6 10*3/uL (0.1-1.0); MONO % 6.0 % (3.0-9.0); NEUT # 7.0 10*3/uL (2.3-7.9); NEUT % 72.8 % (47.0-73.0); NUCLEATED RED BLOOD CELL 0.0 % (0.0-0.0); NUCLEATED RED BLOOD CELL 0.0 10*3/uL (0.0-0.0); PLATELET COUNT AUTOMATED 214 10*3/uL (130-400); RED CELL DISTRI WIDTH 17.9 % (0-14.5)
[2025-11-12 11:52] LABS: BUN 51.0 mg/dl (9-23)
[2025-11-12 14:42] LABS: BILIRUBIN Negative (Negative); BLOOD Negative (Negative); CLARITY Cloudy (Clear); COLOR Yellow (Yellow); KETONE Trace (Negative); LEUKO ESTERASE Trace (Negative); NITRITE Negative (Negative); PH 5.0 (4.5-8.0); SPECIFIC GRAVITY 1.015 (1.001-1.030); UROBILINOGEN 1.0 E.U./dl (0.0-1.0)
[2025-11-12 15:18] LABS: EPITHELIAL CELLS 31-40
[2025-11-12 15:19] LABS: BACTERIA 3+; RBC 0-2 rbc/hpf (0-2)
== END | disposition home or self-care (01) ==
LOC: LAB 10:59
PROVIDERS: ATTEND Nurse Practitioner Family
DX: N04.0 Nephrotic syndrome with minor glomerular abnormality (principal); N17.8 Other acute kidney failure; D64.9 Anemia, unspecified; R80.9 Proteinuria, unspecified